=== PATIENT | female | born 1940 | race Caucasian/White ===

== ENCOUNTER 2022-12-01 12:34 | Emergency (ER) | payer MEDICARE, OTHER, SELFPAY ==
[2022-12-01 12:35] VITALS: BP 139/84; PULSE 67; RESP 15; TEMP 36.2; O2SAT 98; BMI 26.9
--- NOTE | 2022-12-01 13:18 | EKG12_ITS ---
Test Reason : /GENERAL Blood Pressure : / mmHG Vent. Rate : 128 BPM Atrial Rate : 000 BPM P-R Int : 000 ms QRS Dur : 068 ms QT Int : 314 ms P-R-T Axes : 000 079 -43 degrees QTc Int : 458 ms Atrial fibrillation with rapid ventricular response Nonspecific ST and T wave abnormality Abnormal ECG Confirmed by VIKKI GENAO, GOLD ([id number]), story editor AVNI GONSALVES ([id number]) on 12/06/2022 12:44:48 P M Referred By: Confirmed By:АНДРЕЙ FLOREZ MD
--- NOTE | 2022-12-01 13:19 | EX.ED.DYSGE1 ---
HPI History of Present Illness Chief Complaint: Other, Pain/Inj Detail of Chief Complaint: EKG changes Informant: patient Narrative Narrative: Patient presents to the ER from her PCPs office secondary to EKG changes noted in the office today. She states she went in for routine follow-up and has no complaints. She was told that her EKG was abnormal and she needed to come to the emergency room. She denies any chest pain or shortness of breath. It appears that she has a new onset atrial fibrillation with A-fib RVR on the monitor. [facility] Medical History (Updated 12/01/22 @ 15:[address] Ileana Jiang MD) Hypertension Home Medications glucosamine HCl 500 mg-msm 83 mg-chondroitin 400 mg tablet 1 ea PO DAILY 11/03/16 [History Last Taken Unknown] lisinopril 10 mg tablet (Prinivil) 10 mg PO DAILY 11/03/16 [History Last Taken 11/10/16 05:30] pfynczdb-fwbg-qicu 8 mg-folic 400 mcg-K 50 mcg-lutein 300 mcg tablet (Centrum Silver Women) 1 ea PO DAILY 11/03/16 [History Last Taken Unknown] tolterodine 2 mg tablet (Detrol) 2 mg PO PRN PRN Bladder 11/03/16 [History Last Taken Unknown] hydrocodone-acetaminophen 5-325mg 5mg-325mg 1 tab PO Q6H PRN PRN Pain ##6 11/10/16 [Rx Last Taken Unknown] apixaban 5 mg (74 tabs) tablets in a dose pack (Eliquis DVT-PE Treat 30D Start) 5 mg PO BID #74 tabs 12/01/22 [Rx Last Taken Unknown] diltiazem HCl 180 mg capsule,extended release 24 hr (Cardizem CD) 180 mg PO DAILY #30 caps 12/01/22 [Rx Last Taken Unknown] Allergy/AdvReac Type Severity Reaction Status Date / Time allopurinol Allergy Other Verified 12/01/22 13:02 tramadol Allergy Other Verified 12/01/22 13:02 adhesive tape AdvReac Rash Verified 12/01/22 13:02 Social History Smoking Status: Never smoker ROS ROS ED Constitutional Constitutional ED: Denies chills or fever(s) Eyes Eyes: Denies change in vision or discharge from eye(s) ENT ENT ED: Denies discharge from eye(s), rhinorrhea or sore throat Cardiovascular Cardiovascular: Denies chest pain or palpitations Respiratory/Chest Respiratory/Chest: Denies cough or dyspnea Gastrointestinal Gastrointestinal: Denies abdominal pain, diarrhea, nausea or vomiting Genitourinary Genitourinary ED: Denies difficulty urinating or dysuria Musculoskeletal Musculoskeletal: Denies back pain or extremity pain Integumentary Denies Abrasions or rash Neurologic Neurologic: Denies headache(s) or weakness Psychiatric Psychiatric: Denies anxiety or depression Allergic/Immunologic Allergic/Immunologic ED: Denies lip swelling or urticaria EXAM Physical Exam Const Vital Signs: 12/01/22 12:35 12/01/22 14:12 Temperature 97.2 F L Temperature Source Temporal Pulse Rate 67 110 H Respiratory Rate 15 20 H Blood Pressure 139/84 H 152/107 H Blood Pressure Mean 102 122 Pulse Ox 98 98 Oxygen Delivery Method Room Air Room Air Positive well nourished and well developed General Appearance ED: well developed HEENT Reports normocephalic and head/scalp atraumatic Eyes PERRL and EOMs intact bilaterally Neck supple Chest Wall inspection of chest normal and palpation of chest normal Resp normal respiratory effort and clear to auscultation bilaterally Cardio Rate: tachycardic Rhythm: abnormal rhythm irregularly irregular GI normal to inspection, nondistended, normoactive bowel sounds Palpation: soft Extremity normal to inspection Neuro oriented x3 and no sensory deficits noted Sensorium / Orientation: alert Motor Exam: strength 5/5 throughout Psych mental status grossly normal Skin no rashes or lesions noted MDM MDM MDM Narrative Medical decision making narrative: Patient placed on phototypesetting equipment monitor. EKG obtained to evaluate for cardiac arrhythmia/ischemia. Chest x-ray obtained to evaluate for acute lung pathology, cardiac size, or mediastinal abnormality. Labwork obtained to evaluate for leukocytosis, anemia, and electrolyte derangement. Patient is in A-fib RVR at the time of my exam. She is given 10 mg of IV Cardizem. Lab Data Attestation: I reviewed the patient's lab results. Labs: Laboratory Results - last 24 hr 12/01/22 13:20 WBC 8.7 RBC 4.59 Hgb 14.9 Hct 47.5 H MCV 103.5 H MCH 32.5 H MCHC 31.4 L RDW Std Deviation 47.0 H RDW Coeff of Shelia 12.3 Plt Count 204 MPV 11.7 Immature Gran % (Auto) 0.200 Neut % (Auto) 71.6 H Lymph % (Auto) 17.1 L [place] % (Auto) 9.0 Eos % (Auto) 1.3 Baso % (Auto) 0.8 Absolute Neuts (auto) 6.2 Absolute Lymphs (auto) 1.48 Nucleated RBC % 0 Sodium 136 Potassium 4.6 Chloride 104 Carbon Dioxide 24.0 Anion Gap 8 BUN 24 H Creatinine 1.04 H Estim Creat Clear Calc 34.77 Est GFR (MDRD) Af Amer 65 Est GFR (MDRD) Non-Af 54 L BUN/Creatinine Ratio 23.1 H Glucose 167 H Calcium 9.6 Troponin I High Sens 14 TSH 2.70 Radiography Chest X-Ray - ED: 1 View, Read by ED Physician and Cardiomegaly Diagnostic Testing: Clinical Impression(s) from Imaging Studies Chest X-Ray 12/01/22 13:45 IMPRESSION: Mild cardiac enlargement. The lungs are clear. Electronically Signed: Hoang Reyna MD at 14:05 EDT , EKG Initial EKG: Attestation: I personally reviewed and interpreted this EKG as follows: Interpretation: Atrial Fibrillation (Atrial fibrillation with ventricular response rate of [address] change.) Treatment and Re-Evaluation :: EKG reveals A-fib RVR with a ventricular response rate 128 bpm. Previous EKG from 2012 reveals sinus rhythm. CBC and chemistry studies are largely unremarkable. Potassium is normal at 4.6. Troponin is normal at 14 and TSH is normal at 2.7. Portable chest x-ray per my interpretation reveals cardiomegaly. Radiology interpretation is reviewed and agrees. After 10 mg of IV Cardizem patient's heart rate is now in the mid to high 90s. I spoke Dr. Arevalo, on-call for cardiology. At this time the patient's rate is controlled and she wishes to go home. We will stop her lisinopril. She will be started on Cardizem 180 mg CD and Eliquis. She will follow-up in the cardiology office. Return instructions have been given. Discharge Plan Triage Chief Complaint: Other, Pain/Inj ED Provider: Ileana Jiang Dx/Rx/DC Orders Clinical Impression: Atrial fibrillation, new onset, Atrial fibrillation with RVR Instructions: ED AFIB Prescriptions: New diltiazem HCl [Cardizem CD] 180 mg capsule,extended release 24hr 180 mg PO DAILY Qty: 30 0RF Eliquis DVT-PE Treat 30D Start 5 mg (74 tabs) tablets,dose pack 5 mg PO BID Qty: 74 0RF No Action tolterodine [Detrol] 2 MG tablet 2 mg PO PRN PRN (Reason: Bladder) lisinopril [Prinivil] 10 MG tablet 10 mg PO DAILY nywuynzv-dwr-lzyh-FA-vit K-lut [Centrum Silver Women] 1 EACH tablet 1 ea PO DAILY glucosamine VTh-wrs-wqwbgmhcyn 1 EACH tablet 1 ea PO DAILY hydrocodone-acetaminophen 1 TABLET tablet 1 tab PO Q6H PRN PRN (Reason: Pain) Qty: 6 0RF Primary Care Provider: Blake Jefferson Referrals: Blake Jefferson MD [Primary Care Provider] - Angela Arevalo MD [Med Staff - Active Staff] - 1-2 Weeks Disposition Disposition: Home, Self Care
[2022-12-01 13:36] LABS: Absolute Lymphocyte Count 1.48 X10^3/uL (0.83-4.51); Absolute Neutrophil Count 6.2 X10^3/uL (2.0-7.7); Basophil# 0.07 X10^3/uL; Basophil% 0.8 % (0-1); Eosinophil# 0.11 X10^3/uL; Eosinophils% 1.3 % (0-5); Hematocrit 47.5 % (37-47); Hemoglobin 14.9 g/dL (12.0-15.0); Lymphocyte # 1.48 X10^3/ul (0.83-4.51); Lymphocyte % 17.1 % (19-41); Mean Corp Hgb Conc 31.4 g/dL (32-36); Mean Corpuscular Hgb 32.5 pg (27.0-32.0); Mean Corpuscular Volume 103.5 fL (81-99); Mean Platelet Vol. 11.7 fl (6.2-12.0); Monocyte# 0.78 X10^3/uL; NRBC Flagged by Analyzer 0 % (0-5); Neutrophil # 6.21 X10^3/uL (2.7-7.7); Neutrophil % 71.6 % (47-70); Platelet Count 204 K/mm3 (150-450); RBC Distribution Width CV 12.3 % (11.6-14.6); Red Blood Count 4.59 M/mm3 (4.2-5.4); White Blood Count 8.7 K/mm3 (4.4-11.0)
[2022-12-01] MEDS: dilTIAZem 25 MG/5 ML Vial 10 MG IV BOLUS (13:40)
[2022-12-01] MEDS: 0.9% Normal Saline 1,000 ML 150 ML IV (13:40)
--- NOTE | 2022-12-01 13:45 | RAD_ITS ---
STUDY: X-RAY CHEST REASON FOR EXAM: Female, 82 years old. cp TECHNIQUE: Single AP portable view of the chest. COMPARISON: None. FINDINGS: EKG electrodes are seen. The lungs are clear and expanded. There is no demonstrated pleural abnormality. There is mild cardiac enlargement. Normal mediastinum and susie. Normal visualized pulmonary arteries. There is atherosclerotic tortuosity of the aortic arch and descending thoracic aorta. There are diffuse degenerative changes of the visualized thoracic spine. Mild calcific tendinitis of the left shoulder. There is no demonstrated abnormality of the visualized soft tissue structures of the upper abdomen. RAD/Chest 1 View (Portable) IMPRESSION: Mild cardiac enlargement. The lungs are clear. Electronically Signed: Hoang Reyna MD at 14:05 EDT ,
[2022-12-01 14:02] LABS: Anion Gap 8 (5-15); BUN 24 mg/dL (7-18); BUN/Creat Ratio 23.1 RATIO (10-20); Calcium,Total 9.6 mg/dL (8.5-10.1); Chloride 104 mmol/L (98-107); Creatinine, Serum 1.04 mg/dL (0.55-1.02); EST Glomerular Filtration Rate 54 mL/min (>60); Est Glom Filt Rate - Afr Amer 65 mL/min (>60); Estimated Creatinine Clearance 34.77 ml/min; Glucose 167 mg/dL (74-106); Potassium 4.6 mmol/L (3.5-5.1); Sodium Level 136 mmol/L (136-145); Troponin-I HS 14 pg/mL (3.0-54.0)
[2022-12-01 14:12] VITALS: BP 152/107; PULSE 110; RESP 20; O2SAT 98
== END 2022-12-01 15:26 | disposition home or self-care (01) ==
PROVIDERS: Emergency Provider Emergency Medicine; PCP Family Medicine; Visit Provider Emergency Medicine
DX: I48.91 Unspecified atrial fibrillation (principal); I10 Essential (primary) hypertension; Z79.899 Other long term (current) drug therapy
CPT/HCPCS: 71045; 80048; 84443; 84484; 85025; 93005; 96361; 96374; 99284; J7030; A4216

== ENCOUNTER → 2022-12-31 | Outpatient (CLI) | payer MEDICARE, OTHER, SELFPAY ==
--- NOTE | 2022-12-31 12:57 | ECHOD_ITS ---
Version 2 Reason For Study: AFIB/FLUTTER Procedure This was a 2D Doppler, Color Flow transthoracic echocardiogram. The study was technically difficult. PT had difficulty with vertigo. Exam performed in department. Left Ventricle Normal LV size. Left ventricular systolic function is lower limits of normal. No regional wall motion abnormalities noted. Right Ventricle Normal RV size. Normal systolic function. Atria Normal left atrium. Normal right atrium. Mitral Valve Normal mitral valve. Mild (1+) eccentric mitral valve insufficiency. Tricuspid Valve Normal tricuspid valve. Mild (1+) tricuspid valve insufficiency. Pulmonary artery systolic pressure is 40 mmHg. Aortic Valve Trisinus/trileaflet aortic valve. Pulmonic Valve Normal pulmonic valve. Great Vessels Normal aortic root. The pulmonary artery is normal size. Normal inferior vena cava. Pericardium/Pleural No pericardial effusion. MMode/2D Measurements & Calculations LVIDd: 4.3 cm IVSd: 0.77 cm Ao root diam: 3.1 cm LVIDs: 3.5 cm LVPWd: 0.89 cm RVDd: 2.4 cm FS: 17.8 % LAV(MOD-bp): 50.5 ml LA A4 area: 17.6 cm2 LA dimension(2D): 3.6 cm LAV(MOD-bp) Indexed: 28.5 ml/m2 LAV(MOD-sp2): 48.8 ml LAV(MOD-sp4): 48.8 ml RA A4 area: 19.9 cm2 Doppler Measurements & Calculations MV E max brent: 120.2 cm/sec Lat Peak E' Brent: 13.7 cm/sec Med Peak E' Brent: 9.5 cm/sec E/E' lat: 8.8 E/E' med: 12.6 Ao V2 max: 128.8 cm/sec LV V1 max: 72.0 cm/sec MR max brent: 542.8 cm/sec Ao max P.6 mmHg LV V1 max P.1 mmHg MR max P.8 mmHg Ao V2 mean: 89.9 cm/sec LV V1 mean P.2 mmHg Ao mean P.6 mmHg LV V1 mean: 50.6 cm/sec Ao V2 VTI: 20.7 cm LV V1 VTI: 13.9 cm AV (velocity ratio): 0.67 PA V2 max: 121.1 cm/sec TR max brent: 298.3 cm/sec PA V2 mean: 72.0 cm/sec PI dec slope: 238.7 cm/sec2 TR max P.6 mmHg ECHO/Echo Complete Interpretation Summary Normal LV size. Left ventricular systolic function is lower limits of normal. Pulmonary artery systolic pressure is 40 mmHg. Structurally normal valves. Ordering Physician: Isaac Moss Referring Physician: Dali Rivas Performed By: Marizol Harmon, RDCS, RVT
== END | disposition home or self-care (01) ==
LOC: CVS 12:56
PROVIDERS: PCP Nurse Practitioner Family; Referring Provider Internal Medicine Cardiovascular Disease; Visit Provider Internal Medicine Cardiovascular Disease
DX: I48.0 Paroxysmal atrial fibrillation (principal)
CPT/HCPCS: 93306

== ENCOUNTER 2024-12-19 18:08 | Emergency (ER) | payer MEDICARE, OTHER, SELFPAY ==
[2024-12-19 18:09] VITALS: BP 184/84; PULSE 77; RESP 16; TEMP 37.2; O2SAT 98; BMI 25.1
[2024-12-19 19:50] VITALS: BP 189/84; PULSE 87; RESP 20; O2SAT 99
--- NOTE | 2024-12-19 19:57 | EX.ED.DYSGE1 ---
HPI History of Present Illness Chief Complaint: Hypertension [facility] Medical History Longstanding persistent atrial fibrillation Paroxysmal atrial fibrillation Essential hypertension Hyperlipidemia Type 2 diabetes mellitus without complication Diffuse cystic mastopathy of breast Osteoarthritis Atrial fibrillation with RVR Home Medications Medication Instructions Recorded Last Taken Type acetaminophen 500 mg tablet 500 mg PO Q6H PRN 12/09/22 Unknown History tolterodine 2 mg tablet (Detrol) 2 mg PO DAILY PRN Bladder 12/09/22 Unknown History glucosamine HCl 500 mg-msm 83 1 tab PO DAILY 12/15/22 Unknown History mg-chondroitin 400 mg tablet gcvnukfy-ovkk-nfdo 8 mg-folic 400 1 tab PO DAILY 12/15/22 Unknown History mcg-K 50 mcg-lutein 300 mcg tablet (Centrum Silver Women) apixaban 5 mg tablet (Eliquis) 5 mg PO BID #60 tabs 01/05/24 Unknown Rx diltiazem HCl 180 mg 180 mg PO DAILY #90 caps 02/27/24 Unknown Rx capsule,extended release 24 hr (Cardizem CD) Allergy/AdvReac Type Severity Reaction Status Date / Time allopurinol Allergy Other Verified 12/19/24 18:10 tramadol Allergy Other Verified 12/19/24 18:10 adhesive tape AdvReac Rash Verified 12/19/24 18:10 Family History Sister Diabetes Breast cancer Heart disease Surgical History History of breast biopsy History of bilateral carpal tunnel release Social History Smoking Status: Never smoker alcohol intake: current alcohol intake frequency: holidays/special occasions only substance use type: does not use caffeine: Yes Type: coffee Number of servings: 1 EXAM Physical Exam Const Vital Signs: 12/19/24 18:09 12/19/24 19:50 12/19/24 19:50 Temperature 98.9 F Temperature Source Oral Pulse Rate 77 87 Respiratory Rate 16 20 H Respiratory Pattern Normal Blood Pressure 184/84 H 189/84 H Blood Pressure Mean 117 119 Pulse Ox 98 99 Oxygen Delivery Method Room Air Room Air 12/19/24 20:00 12/19/24 20:37 Temperature Temperature Source Pulse Rate 95 75 Respiratory Rate 18 20 H Respiratory Pattern Blood Pressure 190/85 H 186/86 H Blood Pressure Mean 120 119 Pulse Ox 98 97 Oxygen Delivery Method Room Air Room Air [facility] Narrative Medical decision making narrative: HISTORY OF PRESENT ILLNESS: Chief complaint: Elevated blood pressure 84-year-old female history of A-fib, hypertension hyperlipidemia on Eliquis, diltiazem at home presents with elevated blood pressure. States she was at her PCPs office prior to arrival they noted she had elevated blood pressure and was complaining of dizziness presented to the emergency department. The patient further states she has been compliant with all of her medications including diltiazem. Denies headache, chest pain, abdominal pain. No recent vomiting or diarrhea noted. REVIEW OF SYSTEMS: Pertinent positives: Elevated blood pressure, dizziness Pertinent negatives: As per HPI PHYSICAL EXAM: Nursing triage notes reviewed, Vital signs reviewed Constitutional: please see [facility] HENT: MMM Eyes: Pupils equal round and reactive to light, Extraocular muscles intact Neck: No stridor, no JVD, full neck ROM Lungs: Clear to auscultation, No wheezing or rales. No increased work of breathing, no conversational dyspnea, no accessory muscle use, no nasal flaring. No respiratory distress noted Heart: Regular rate and rhythm, No murmurs, No rubs and No gallops, 2+ distal pulses (radial, femoral, posterior tibial) in all extremities Abdomen: Soft, there is no tenderness, rigidity, rebound or guarding, no obvious peritoneal signs, no palpable pulsatile abdominal masses, no auscultated abdominal bruit : No CVAT Extremities: No edema Neuro: No new focal neurological deficits, cranial nerves II through XII intact, 5/5 strength in all present extremities. Intact sensation to light touch in all present extremities, 2+ reflexes bilateral patella tendons. Skin: No rash or lesions noted MEDICAL DECISION MAKING: Chief Complaint: please see HPI External records reviewed: Reviewed echocardiogram 2022 which showed normal LV function Factors affecting care: As per HPI Social determinants of health: patient History obtained from others: none Consults: none [facility] Narrative: Patient was initially hemodynamically stable, afebrile and nontoxic-appearing. Exam without focal cardiopulmonary normalities. I considered the following differential diagnosis: ICH, mass, posterior circulation CVA, endorgan damage from elevated blood pressure. I obtained a broad lab and imaging workup to further elucidate etiology of patient's complaints. Initially wrote for labetalol and the patient's blood pressure went to 214/122 however before labetalol was given patient's blood pressure spontaneously resolved per nurse report to 156/78. Labetalol i was not given ALL IMAGES (IF OBTAINED) HAVE BEEN PERSONALLY REVIEWED AND INTERPRETED BY MYSELF. CT scan of the brain shows no acute abnormalities I have personally reviewed the patient's chest x-ray. Chest x-ray is unremarkable for pulmonary edema, pneumothorax, pneumonia or focal cardiopulmonary abnormality. CBC without leukocytosis, severe anemia, no thrombocytopenia. CMP without evidence of acute kidney injury, significant electrolyte abnormality, anion gap to suggest end organ hypo-perfusion, no evidence of metabolic acidosis with a normal bicarbonate, no evidence of hepatobiliary obstructive pathology. High-sensitivity troponin is negative, no evidence of myocardial ischemia The synthesis of the patient's history, physical exam, labs image suggest elevated blood pressure. Will start the patient on Norvasc and have her follow with cardiology/PCP for further outpatient blood pressure titration The patient and/or family, caregivers express understanding. The patient and/or family, caregivers agrees with the plan. Shared decision making: I will have a discussion with the patient and or visitors regarding risk/benefits of further testing or admission. They will be made aware of of the risk/benefits inherent in this decision they will be given the opportunity to voice understanding. Total critical care time today provided was at least 0 minutes. This excludes separately billable procedures. Critical care time (if documented) is secondary to the patient having high probability of clinically significant/life threatening deterioration in the patient's condition which required my urgent intervention. Impression: 1. Asymptomatic hypertension 2. History of hypertension Dispo: Discharge home This note was generated with [employer] dictation software. It may contain incorrect words, spelling, and punctuation that were not noted in review of the chart prior to signing. Lab Data Labs: Laboratory Results - last 24 hr 12/19/24 20:29 WBC 8.4 RBC 4.67 Hgb 15.1 H Hct 44.6 MCV 95.5 MCH 32.3 H MCHC 33.9 RDW Std Deviation 42.4 RDW Coeff of Shelia 12.1 Plt Count 251 MPV 10.4 Immature Gran % (Auto) 0.200 Neut % (Auto) 65.3 Lymph % (Auto) 23.5 [place] % (Auto) 9.4 Eos % (Auto) 1.0 Baso % (Auto) 0.6 Absolute Neuts (auto) 5.5 Absolute Lymphs (auto) 1.97 Nucleated RBC % 0 Sodium 140 Potassium 4.1 Chloride 101 Carbon Dioxide 24.2 Anion Gap 15 BUN 16 Creatinine 0.94 Estim Creat Clear Calc 38.80 L Est GFR (MDRD) Non-Af 59 L BUN/Creatinine Ratio 17.0 Glucose 132 H Calcium 9.8 Total Bilirubin 0.42 AST 21 ALT 17 Alkaline Phosphatase 89 Troponin T High Sens 17 H Total Protein 7.7 Albumin 4.6 Globulin 3.1 Albumin/Globulin Ratio 1.5 Radiography Diagnostic Testing: Clinical Impression(s) from Imaging Studies Brain CT 12/19/24 20:38 IMPRESSION: No acute intracranial findings Reading Location: [place] [address] Chest X-Ray 12/19/24 20:38 IMPRESSION: No acute chest findings. Reading Location: [place] [address] Discharge Plan Triage Chief Complaint: Hypertension ED Provider: Felipe Cooley Dx/Rx/DC Orders Prescriptions: No Action acetaminophen 500 mg tablet 500 mg PO Q6H PRN tolterodine [Detrol] 2 mg tablet 2 mg PO DAILY PRN (Reason: Bladder) glucosamine RTw-dlk-yszmezftnn 500-83-400 mg tablet 1 tab PO DAILY Centrum Silver Women 8 mg iron-400 mcg-50 mcg tablet 1 tab PO DAILY Eliquis 5 mg tablet 5 mg PO BID Qty: 60 11RF diltiazem HCl [Cardizem CD] 180 mg capsule,extended release 24hr 180 mg PO DAILY Qty: 90 3RF Primary Care Provider: Care Physician,No Primary Referrals: Dali Rivas, B[employer] TRIMMER-C [Non-Staff] - Print Language: Cameroonian
[2024-12-19 20:00] VITALS: BP 190/85; PULSE 95; RESP 18; O2SAT 98
--- NOTE | 2024-12-19 20:13 | EKG12_ITS ---
Test Reason : HYPERTENSION Blood Pressure : */* mmHG Vent. Rate : 92 BPM Atrial Rate : * BPM P-R Int : * ms QRS Dur : 68 ms QT Int : 360 ms P-R-T Axes : * 73 -5 degrees QTcB Int : 445 ms Atrial fibrillation with premature ventricular or aberrantly conducted complexes Septal infarct , age undetermined ST & T wave abnormality, consider inferior ischemia ST & T wave abnormality, consider anterior ischemia Abnormal ECG Confirmed by VIKKI GENAO, GOLD ([id number]), television news video editor TEO REECE ([id number]) on 12/21/2024 1:10:41 PM Referred By: Confirmed By: GOLD FLOREZ MD
--- OUTSIDE RECORDS SUMMARY | 2024-12-19 20:30 | XMS RPT_ITS | CCD ---
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 Oblique XR WRIST GENERAL 3V PA/LAT/OBL RIGHT Radiology Routine Closed fracture of right wrist, initial encounter 1 Occurrences starting 05/11/2024 until 06/10/2025 [facility] Work Phone: Comment on above: 1 Occurrences starti ng 05/11/2024 until 06/10/2025 XR Wrist - right PA and Lateral and Oblique XR WRIST GENERAL 3V PA/LAT/OBL RIGHT Radiology Routine Closed fracture of right wrist, initial encounter 05/14/2024 12:50 PM EST [facility] Work Phone: End: 06-16-2025 XR Wrist - right PA and Lateral and Oblique XR WRIST GENERAL 3V PA/LAT/OBL RIGHT Radiology Routine Closed fracture of distal ends of right radius and ulna with routine healing, subsequent encounter 1 Occurrences starting 05/17/2024 until 06/16/2025 [facility] Work Phone: Comment on above: 1 Occurrences starti ng 05/17/2024 until 06/16/2025 XR Wrist - right PA and Lateral and Oblique XR WRIST GENERAL 3V PA/LAT/OBL RIGHT Radiology Routine Closed fracture of distal ends of right radius and ulna with routine healing, subsequent encounter 05/28/2024 1:38 PM EST [facility] Work Phone: End: 07-19-2025 XR Wrist - right PA and Lateral and Oblique XR WRIST GENERAL 3V PA/LAT/OBL RIGHT Radiology Routine Closed fracture of distal ends of right radius and ulna with routine healing, subsequent encounter 1 Occurrences starting 06/19/2024 until 07/19/2025 [facility] Work Phone: Comment on above: 1 Occurrences starti ng 06/19/2024 until 07/19/2025 XR Wrist - right PA and Lateral and Oblique XR WRIST GENERAL 3V PA/LAT/OBL RIGHT Radiology Routine Closed fracture of distal ends of right radius and ulna with routine healing, subsequent encounter 06/25/2024 3:40 PM [facility] Work Phone: [facility] Immunizations Immunization Date Immunization Notes Care Provider Lan manzo 06-01-2023 influenza (HD-IIV4) vaccine, age 65+ yr, high dose, quadrivalent, PF (FLUZONE HIGH-DOSE) Dali Rivas APRN.CNP Work Phone: [facility] 06-01-2023 influenza virus vacc ine, unspecified formulation Dali Rivas APRN.BETTING CLERK Work Phone: [facility] 05-25-2022 influenza, high-dose , quadrivalent vaccine (FLUZONE HIGH DOSE QUADRIVALENT) Irma Jefferson MD Work Phone: [facility] 05-25-2022 influenza virus vacc ine, unspecified formulation Irma Jefferson MD Work Phone: [facility] 05-13-2021 influenza, high-dose , quadrivalent vaccine (FLUZONE HIGH DOSE QUADRIVALENT) Irma Jefferson MD Work Phone: [facility] 09-25-2020 COVID-19 vaccine, ag e 12+ yr ([employer] - PURPLE [facility]) Irma Jefferson MD Work Phone: [facility] Work Phone: 09-04-2020 COVID-19 vaccine, ag e 12+ yr (PFIZER-BIONTECH - PURPLE TOP) Irma Jefferson MD Work Phone: [facility] 06-19-2020 influenza, high-dose , quadrivalent vaccine (FLUZONE HIGH DOSE QUADRIVALENT) Irma Jefferson MD Work Phone: [facility] 06-18-2019 influenza, high dose seasonal, preservative-free Irma Jefferson MD Work Phone: [facility] 06-21-2018 influenza, high dose seasonal, preservative-free Irma Jefferson MD Work Phone: [facility] 06-20-2017 influenza, high dose seasonal, preservative-free Irma Jefferson MD Work Phone: [facility] 06-07-2016 influenza, high dose seasonal, preservative-free Irma Jefferson MD Work Phone: [facility] 06-07-2016 pneumococcal conjuga te vaccine, 13 valent Irma Jefferson MD Work Phone: [facility] 06-04-2015 influenza, high dose seasonal, preservative-free Irma Jefferson MD Work Phone: [facility] 05-09-2014 influenza, high dose seasonal, preservative-free Irma Jefferson MD Work Phone: [facility] 04-12-2013 influenza virus vacc ine, unspecified formulation Irma Jefferson MD Work Phone: [facility] 05-09-2012 influenza virus vacc ine, unspecified formulation Irma Jefferson MD Work Phone: [facility] 05-18-2011 influenza virus vacc ine, unspecified formulation Irma Jefferson MD Work Phone: [facility] 03-05-2010 influenza virus vacc ine, unspecified formulation Irma Jefferson MD Work Phone: [facility] Work Phone: 02-19-2009 influenza virus vacc ine, unspecified formulation Irma Jefferson MD Work Phone: [facility] Work Phone: 09-05-2008 pneumococcal polysaccharide vaccine, 23 valent Irma Jefferson MD Work Phone: [facility] Work Phone: 03-07-2008 influenza virus vacc ine, unspecified formulation Irma Jefferson MD Work Phone: [facility] 04-11-2007 influenza virus vacc ine, unspecified formulation Irma Jefferson MD Work Phone: [facility] Work Phone: 03-23-2006 influenza virus vacc ine, whole virus Irma Jefferson MD Work Phone: [facility] Work Phone: Payers Date Payer Category Payer Self-pay 2024 Unknown [id number] 2010 Private Health Insurance YESI GONZALES PPO [id number] 2010-Present [phone] [address] [place] [address] PPO [id number] 2010 Private Health Insurance [id number] 2010 Private Health Insurance [id number] 2010 Private Health Insurance [id number] 2003 Medicare MEDICARE MEDICAR E A AND B [id number] 2003-Present [phone] [address] [address] [place] [address] Medicare [id number] 2003 Medicare [id number] 2003 Medicare [id number] 1938 Unknown [id number] 1938 Unknown [id number] Unknown [id number] Social History Date Type Detail Facility Tobacco smoking stat [facility] Never smoked tobacco [facility] Start: 11-23-2021 End: 07-15-2024 Alcohol intake Current non-drinker of alcohol (finding) [facility] Start: 1940 Sex Assigned At Not on file [facility] Start: 11-13-2021 End: 11-23-2021 Exposure to SARS-CoV-2 (event) Not sure [facility] Start: 12-01-2022 Tobacco smoking stat [facility] Unknown if ever smoked [facility] Start: 1940 Sex Assigned At Female W [facility] Start: 12-01-2022 End: 06-20-2024 History of Social function [facility] Work Phone: Start: 12-01-2022 End: 06-20-2024 Tobacco use panel [facility] Work Phone: Adult Depression Screening Assessment 0 [facility] Work Phone: Medical Equipment Procedure Code Equipment Code Equipment Origin al Text Equipment Identifier Dates Screw 2mm T6 Pur ple Stainless Steel 12mm Bone Stardrive Variable Angle Self [id number] Start: 05-16-2024 Plate Lcp Stainl ess Steel 58mm Bone 6x3 Hole 2 Column Variable Angle 2.4mm - [id number] Start: 05-16-2024 Plate Full Threa d Straight Stainless Steel 1.3mm Bone 12 Hole Variable - [id number] Start: 05-16-2024 Screw 2mm T6 Pur ple Stainless Steel 14mm Bone Self Tap Tip Variable Angle - [id number] Start: 05-16-2024 Screw 2mm T6 Pur ple Stainless Steel 13mm Bone Self Tap Tip Variable Angle - [id number] Start: 05-16-2024 Screw Lcp 2.7mm T8 Stainless Steel 12mm Bone Stardrive Self Tap Modular - [id number] Start: 05-16-2024 Screw Lcp 2.4mm T8 Stainless Steel 22mm Bone Self Tap Self Retaining - [id number] Start: 05-16-2024 Screw Lcp 2.4mm T8 Stainless Steel 20mm Bone Variable Angle Lock Self Tap - [id number] Start: 05-16-2024 Screw Lcp 2.4mm T8 Stainless Steel 14mm Bone Variable Angle Lock Self Tap - [id number] Start: 05-16-2024 Screw Lcp 2.4mm T8 Stainless Steel 16mm Bone Variable Angle Lock Self Tap - [id number] Start: 05-16-2024 Screw Lcp 2.4mm T8 Stainless Steel 12mm Bone Variable Angle Lock Self Tap - [id number] Start: 05-16-2024 Screw Lcp 2mm T6 Stainless Steel 16mm Bone Self Tap Self Retaining - [id number] Start: 05-16-2024 Functional Status Date Assessment Result Facility 11-07-2014 Are you deaf, or do you have serious difficulty hearing No 11/07/2014 9:34 AM Yasmin Meza MA [facility] 11-07-2014 Are you blind, or do you have serious difficulty seeing, even when wearing glasses No 11/07/2014 9:34 AM Yasmin Meza MA [facility] 11-07-2014 Do you have serious difficulty walking or climbing stairs No 11/07/2014 9:34 AM Yasmin Meza MA [facility] 11-07-2014 Do you have difficul ty dressing or bathing No 11/07/2014 9:34 AM Yasmin Meza MA [facility] 11-07-2014 Because of a physica l, mental, or emotional condition, do you have difficulty doing errands alone such as visiting a physician's office or shopping No 11/07/2014 9:34 AM EDT Yasmin Jackson MA No [facility] Mental Status Date Assessment Result Facility 12-01-2022 Cognitive function Level Of Cons ciousness Awake;Alert;Appropriate [facility] Work Phone: 11-07-2014 Because of a physica l, mental, or emotional condition, do you have serious difficulty concentrating, remembering, or making decisions No 11/07/2014 9:34 AM EDYasmin Hugo MA No [facility] Clinical Notes 01-03-2018 to 07-26-2024 Telephone Encounter - Handy Anthony LPN - 07/26/2024 10:19 AM ESTTelephone Encounter - Handy Anthony LPN - 07/26/2024 10:19 AM Tye Johnson MD - 06/25/2024 4:11 PM EST Note Date & Type Note Facility 07-26-2024 Telephone encounter Note Patient son Héctor notified of results, verbalizes understanding of instructions. Handy Anthony LPN [facility] 07-26-2024 Miscellaneous Notes Patient son Héctor notified of results, verbalizes understanding of instructions. Handy Anthony LPN Can you please call the patient and let her know I reviewed her lab results. Triglycerides were mildly elevated. A1c went from 7.2 to 6.9. She may continue with lifestyle changes at home. Try to eat a low-carb diet, watch processed foods, increase lean protein, vegetables, get some form exercise. Repeat fasting labs in 6 months prior to next office visit. Please let me know if she has any questions. Thank you. Dali Rivas APRN.JOSHUA documented in this encounter [facility] 07-26-2024 Telephone encounter Note Can you please call the patient and let her know I reviewed her lab results. Triglycerides were mildly elevated. A1c went from 7.2 to 6.9. She may continue with lifestyle changes at home. Try to eat a low-carb diet, watch processed foods, increase lean protein, vegetables, get some form exercise. Repeat fasting labs in 6 months prior to next office visit. Please let me know if she has any questions. Thank you. Dali Rivas APRN.BETTING CLERK [facility] 06-25-2024 Note HNO ID: [id number] Author: TYE CHAUDHRY MD Service: ? Author Type: Physician Type: Progress Notes Filed: 07/15/2024 17:03 Note Text: Tye Chaudhry MD Department of Orthopaedics Orth[facility] [address] [facility] [address] Dept: [phone] Dept June 25, 2024 CHIEF COMPLAINT: Established Patient and Post Op of the Right Wrist. HPI Patient here today 5 weeks 5 days post op ORIF right distal radius fracture. She denies any pain. New x-ray today. ASSESSMENT: S52.501D, S52.601D Closed fracture of distal ends of right radius and ulna with routine healing, subsequent encounter (primary encounter diagnosis) SUMMARY/PLAN: She's doing remarkably well. Continue her ROM exercises and ADLs. Exam: Healed incisions. Good ROM. NV exam intact. Imaging: IMPRESSION: Healing distal forearm fractures with intact hardware and unchanged alignment. Licensed Clinician: [facility] Transcribe Date/Time: Jun 27 2024 7:52A Dictated by : JN SHIELDS MD This examination was interpreted and the report reviewed and electronically signed by: JN SHIELDS MD on Jun 27 2024 7:53AM EST Results-Findings * * *Final Report* * * DATE OF EXAM: Jun 25 2024 3:40PM [id number] - XR WRIST 3V PA/LAT/OBL RT / PROCEDURE REASON: multiple diagnoses * * * * Physician Interpretation * * * * EXAMINATION / TECHNIQUE: XR WRIST 3V PA/LAT/OBL RT HISTORY: PT STATES RIGHT WRIST FOLLOW UP Closed fracture of distal ends of right radius and ulna with routine healing, subsequent encounter Closed fracture of distal ends of right radius and ulna with routine healing, subsequent encounter COMPARISON: 05/28/2024. RESULT: Healing distal radius and ulna fractures with intact hardware. Bony alignment is unchanged. No new acute bony abnormality. Ms. Janay Bowen was advised as to contrast therapies and/or to take analgesics/anti-inflammatories as needed and all contraindications were reviewed. Supporting Information Below: Medications: Current Outpatient Medications Medication Sig tolterodine (DETROL) 2 mg tablet TAKE 1 TABLET BY MOUTH TWICE DAILY NEEDED ELIQUIS 5 mg tab(s) Take 5 mg by mouth two times a day. dilTIAZem CD (CARDIZEM CD, CARTIA XT) 180 mg 24 hr capsule Take 1 capsule by mouth every afternoon. Glucosamine and [id number]-JE-Sak9 [id number] mg tab Take by mouth. acetaminophen (TYLENOL) 500 mg tablet Take 1 tablet by mouth every 6 hours as needed. CENTRUM SILVER TAB Take one(1) tablet daily. ondansetron orally disintegrating (ZOFRAN ODT) 4 mg disintegrating tablet Take 1 tablet by mouth every 6 hours as needed for nausea/vomiting. No current facility-administered medications for this visit. Allergies: Allopurinol and Tramadol Tye Chaudhry MD [facility] 06-25-2024 History of Present illness Narrative Tye Chaudhry MD Department of Orthopaedics Orthopaedics [facility] [address] Dept: [phone] Dept June 25, 2024 CHIEF COMPLAINT: Established Patient and Post Op of the Right Wrist. HPI Patient here today 5 weeks 5 days post op ORIF right distal radius fracture. She denies any pain. New x-ray today. ASSESSMENT: S52.501D, S52.601D Closed fracture of distal ends of right radius and ulna with routine healing, subsequent encounter (primary encounter diagnosis) SUMMARY/PLAN: She's doing remarkably well. Continue her ROM exercises and ADLs. Exam: Healed incisions. Good ROM. NV exam intact. Imaging: IMPRESSION: Healing distal forearm fractures with intact hardware and unchanged alignment. Licensed Clinician: DAISY Transcribe Date/Time: Jun 27 2024 7:52A Dictated by : JN SHIELDS MD This examination was interpreted and the report reviewed and electronically signed by: JN SHIELDS MD on Jun 27 2024 7:53AM EST Results-Findings * * *Final Report* * * DATE OF EXAM: Jun 25 2024 3:40PM [id number] - XR WRIST 3V PA/LAT/OBL RT / PROCEDURE REASON: multiple diagnoses * * * * Physician Interpretation * * * * EXAMINATION / TECHNIQUE: XR WRIST 3V PA/LAT/OBL RT HISTORY: PT STATES RIGHT WRIST FOLLOW UP Closed fracture of distal ends of right radius and ulna with routine healing, subsequent encounter Closed fracture of distal ends of right radius and ulna with routine healing, subsequent encounter COMPARISON: 05/28/2024. RESULT: Healing distal radius and ulna fractures with intact hardware. Bony alignment is unchanged. No new acute bony abnormality. Ms. aJnay Bowen was advised as to contrast therapies and/or to take analgesics/anti-inflammatories as needed and all contraindications were reviewed. Supporting Information Below: Medications: Current Outpatient Medications Medication Sig tolterodine (DETROL) 2 mg tablet TAKE 1 TABLET BY MOUTH TWICE DAILY NEEDED ELIQUIS 5 mg tab(s) Take 5 mg by mouth two times a day. dilTIAZem CD (CARDIZEM CD, CARTIA XT) 180 mg 24 hr capsule Take 1 capsule by mouth every afternoon. Glucosamine and Powwdqzko-KM-[id number] mg tab Take by mouth. acetaminophen (TYLENOL) 500 mg tablet Take 1 tablet by mouth every 6 hours as needed. CENTRUM SILVER TAB Take one(1) tablet daily. ondansetron orally disintegrating (ZOFRAN ODT) 4 mg disintegrating tablet Take 1 tablet by mouth every 6 hours as needed for nausea/vomiting. No current facility-administered medications for this visit. Allergies: Allopurinol and Tramadol Tye Chaudhry MD documented in this encounter [facility] 06-25-2024 History of Present illness Narrative Radiology Service Progress Note PATIENT NAME: Janay Bowen DATE OF SERVICE: June 25, 2024 TIME: 9:32 PM PATIENT IDENTITY VERIFICATION COMPLETED USING TWO (2) IDENTIFIERS: Name and Date of confirmed by patient verbally. FALL SCREENING: Has the patient had 2 falls in the last year or 1 fall with injury or currently using an Ambulatory Assistive Device (Walker, Cane, Wheelchair, Crutches, etc.)? Yes, Patient High Risk for Falls What interventions were put in place to prevent falls during this visit? Increased Observations by Caregivers PATIENT GENDER DATA: Assigned female at . status: : No status: NO. PATIENT RELEVANT IMPLANT DATA REVIEWED: Not Applicable PATIENT PRESENTS WITH AN IMPLANTABLE OR ATTACHED REPRODUCTION TECHNICIAN: No RADIOLOGY DEPARTMENT: General X-ray: Exam(s) Completed: Upper Extremity X-Ray(s): Wrist, right PERIPHERAL IV DATA: Not applicable SIGNED BY: RT Javon(Nena) June 25, 2024 9:32 PM documented in this encounter [facility] 06-25-2024 Note HNO ID: [id number] Author: GRETA HERNANDEZ RT(R) Service: ? Author Type: Technologist Type: Progress Notes Filed: 06/25/2024 21:33 Note Text: Radiology Service Progress Note PATIENT NAME: Janay Bowen DATE OF SERVICE: June 25, 2024 TIME: 9:32 PM PATIENT IDENTITY VERIFICATION COMPLETED USING TWO (2) IDENTIFIERS: Name and Date of confirmed by patient verbally. FALL SCREENING: Has the patient had 2 falls in the last year or 1 fall with injury or currently using an Ambulatory Assistive Device (Walker, Cane, Wheelchair, Crutches, etc.)? Yes, Patient High Risk for Falls What interventions were put in place to prevent falls during this visit? Increased Observations by Caregivers PATIENT GENDER DATA: Assigned female at . status: : No status: NO. PATIENT RELEVANT IMPLANT DATA REVIEWED: Not Applicable PATIENT PRESENTS WITH AN IMPLANTABLE OR ATTACHED REPRODUCTION TECHNICIAN: No RADIOLOGY DEPARTMENT: General X-ray: Exam(s) Completed: Upper Extremity X-Ray(s): Wrist, right PERIPHERAL IV DATA: Not applicable SIGNED BY: RT Javon(R) June 25, 2024 9:32 PM [facility] 06-20-2024 History of Present illness Narrative Images from the original note were not included. Janay Bowen is a 83 year old female here for a Medicare wellness visit. Medicare Health Risk Assessment General Health fair Exercise: Minutes/Day 45 minutes Exercise: Days/Week 7 days a week Alcohol: Daily Use No Alcohol: Drinks/Day N/A Alcohol: 6 or more drinks N/A Feel off balance yes Concerns: Teeth/Dentures No Concerns: Sexual function No Troubled by feelings No Frequency: Eating healthy diet Yes ADLs requiring help No Safety precautions in home/vehicle Yes Smoke, vape, chews tobacco No Difficulty hearing Yes Difficulty seeing No Current Providers Specialists: I have reviewed specialist-related care of the patient in the medical record. Medical/Family history review Reviewed and updated problem list, medical/surgical/family/social history, medications, and allergies. Opioid use review Opioid Medications (last 90 days) 05/16/2024 05/23/2024 23:59 Opioid Medications hydrocodone/acetaminophen Admitted: May 16 - May 16, 2024 1 tablet q 6 H PRN ORAL -Rx End hydrocodone/acetaminophen 1 tablet, ORAL, NEEDED, 1 dose, Starting on Tue05/16/24 at 1713, Until Tue05/16/24 at 2126, Mild Pain (1-3) - Enteral, Moderate Pain (4-6) - Enteral, Recovery or Phase I (only) -Discontinued (AUTO DC AT D) oxycodone HCl/acetaminophen Admitted: May 16 - May 16, 2024 1 tablet q 8 H PRN ORAL (5-325 mg tab) -Discontinued meperidine HCl/PF 12.5 mg, INTRAVENOUS, NEEDED, Starting on Tue05/16/24 at 1713, Until Tue05/16/24 at 2126, for shivering May Repeat 12.5 mg in 10 minutes X1 for Continued Shivering Recovery or Phase I (only) -Discontinued (AUTO DC AT D) Details Outpatient prescription Hospital medication Patient-reported medication Anxiety/Depression screening Recommendation: no further intervention at this time Cognitive screening Cognitive screening reviewed and No further action needed (score 3-5). Functional Observation Was the patient's Timed Up & Go test unsteady or >= 12 seconds? No Advance Care Planning Surrogate decision maker and/or advance care plan documented Measurements BP 124/86 Pulse 88 Resp 16 Wt 62.9 kg (138 lb 10.7 oz) SpO2 99% BMI 27.08 kg/m Vision Screening: Follows with optometry/ophthalmology Assessment/Plan Medicare annual wellness visit, subsequent (Z00.00) - Counseled on healthy diet and regular exercise - Fall avoidance information provided - Personalized prevention plan provided This is a 83 year old female who presents today with: Patient presents with: Follow Up HISTORY OF PRESENT ILLNESS: Janay Bowen is a 83 year old female. Patient presents with: Follow Up Here in the office for extensive exam Closed fracture of the right wrist in the fall. Following with orthopedics. Was seen at the end of last month, sutures removed and brace was applied. Next follow-up at the end of this month. Refers she is doing well. Has been working on getting hand stronger. HTN: Was taking lisinopril 10 mg daily. Not currently checking blood pressure at home. Denies chest pain, palpitations, dizziness, or edema. BP elevated today. Medication was stopped due last hospital visit. Denies any headaches, chest pain, palpitations, or edema. Afib: Diagnosed at last visit, referred to cardiology. Went [facility], had evaluation. Will have follow up later this month. Denies chest pain.Taking Cardizem 180 mg daily and Eliquis 5 mg BID. Lipids: Working on watching diet, currently not taking any medication at this time. Type 2 diabetes: currently not checking blood sugars at home. Following with [facility]. Denies any increased thirst/urination or episodes of hypoglycemia. Both bilateral toes "feel funny" - a constant tingling. OA: Bilateral knees, taking Tylenol and Voltaran gel as needed. Urinary: Using Detrol 2 mg, at last visit discussed using 1 tab BID prn, refers this has been helpful. Refers that increased urination is worse at nighttime, staying up till about 11 PM watching TV. Does drink caffeinated beverages. Getting up 2-3 times per night. Denies any dysuria. Living alone, sons check on her. Vaccines: Due for Dtap booster at pharmacy. PAST MEDICAL HISTORY: PAST MEDICAL HISTORY Diagnosis Date Carpal tunnel syndrome BILATERAL Diffuse cystic mastopathy Essential hypertension, benign Osteoarthritis Hands, back, knees Other and unspecified hyperlipidemia PAST SURGICAL HISTORY Procedure Laterality Date BIOPSY BREAST OPEN INCISIONAL Bx of breast, incisional left BREAST BIOPSY INCISION Right 11/10/2016 Dr. Hannon CARPAL TUNNEL 2002 Left wrist NEUROPLASTY &/TRANSPOS MEDIAN NRV CARPAL TUNNE Carpal tunnel decomp right NIPPLE EXPLORATION 11/10/2016 OPEN RX DISTAL RADIUS FX, INTRA-ARTICULAR, 3+ FRAG Right 05/16/2024 ORIF right wrist PAST SURGICAL HISTORY OF Removal of lesion left shoulder ALLERGIES Allopurinol and Tramadol MEDICATIONS Current Outpatient Medications Medication Sig tolterodine (DETROL) 2 mg tablet TAKE 1 TABLET BY MOUTH TWICE DAILY NEEDED ondansetron orally disintegrating (ZOFRAN ODT) 4 mg disintegrating tablet Take 1 tablet by mouth every 6 hours as needed for nausea/vomiting. ELIQUIS 5 mg tab(s) Take 5 mg by mouth two times a day. dilTIAZem CD (CARDIZEM CD, CARTIA XT) 180 mg 24 hr capsule Take 1 capsule by mouth every afternoon. Glucosamine and Hpjjovvzw-YF-Wgr7 [id number] mg tab Take by mouth. acetaminophen (TYLENOL) 500 mg tablet Take 1 tablet by mouth every 6 hours as needed. CENTRUM SILVER TAB Take one(1) tablet daily. tizanidine HCl (TIZANIDINE ORAL) Take 4 mg by mouth as needed. lisinopril (ZESTRIL) 10 mg tablet TAKE 1 TABLET BY MOUTH EVERY DAY (Patient not taking: Reported on 05/28/2024) ascorbic acid, vitamin C, (VITAMIN C) 500 mg tablet Take 1 tablet by mouth once daily. (Patient not taking: Reported on 05/28/2024) benzonatate (TESSALON PERLES) 100 mg capsule Take 1 capsule by mouth three times daily as needed for cough. (Patient not taking: Reported on 12/07/2023) betamethasone dipropionate (DIPROSONE) 0.05 % cream Apply to affected area twice daily. (Patient not taking: Reported on 05/28/2024) No current facility-administered medications for this visit. FAMILY HISTORY Problem Relation Age of Onset Diabetes Sister Borderline diabetes Breast Cancer Sister NIECE Social History Tobacco Use Smoking status: Never Smokeless tobacco: Never Vaping Use Vaping status: Never Used Substance Use Topics Alcohol use: No Drug use: No REVIEW OF SYSTEMS GENERAL: No weight loss, malaise or fevers/chills HEENT: Negative for frequent or significant headaches, No changes in hearing or vision. NECK: Negative for lumps, goiter, pain and significant neck swelling RESPIRATORY: Negative for cough, hemoptysis, wheezing, dyspnea or shortness of breath CARDIOVASCULAR: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 2024 1:19 PM documented in this encounter [facility] 04-13-2024 Note Patient Outreach (NE TNAV) JANAY BOWEN ([id number]) 1940 F Date Time Provider Department 04/13/24 REDDY HARGROVE During your visit today, we recorded the following information about you: Reddy Hargrove MA 04/13/2024 1:28 PM Signed POPULATION HEALTH NAVIGATION OUTREACH Action/FYI Return in about 6 months (around 06/08/2024). Spoke to patient and scheduled Medicare Wellness Exam/follow up. Will get flu shot at visit- added to notes. Reason for Outreach Care Gap/HCC or Scheduling Wellness Visits Care Gaps due: Medicare Annual Wellness Visit Follow-up Appointment Flu Vaccine Patient Contacted: Spoke to patient/parent/or legal guardian Patient identified by name and : Yes Care Gap/HCC/Scheduling Wellness actions taken: Patient scheduled/pended orders: Medicare Annual Wellness Visit Flu Vaccine 06/20/2024 in [facility] with DALI RIVAS FLU SHOT Navigation Signature: Reddy Hargrove MA April 13, 2024 1:19 PM Allergies As of Date: 04/13/2024 Noted Allergy Reaction ALLOPURINOL 03/31/2005 TRAMADOL 01/07/2014 11 - Vomiting Date Reviewed: 12/07/2023 Reviewed by: Handy Anthony LPN - Fully Assessed Reason for Visit: Population Health Navigation Outreach [3910] Cmt: O QAE Surge list 2023 Prescriptions as of 04/13/2024 - ELIQUIS 5 mg tab(s) Take 5 mg by mouth two times a day. - tolterodine (DETROL) 2 mg tablet TAKE 1 TABLET BY MOUTH TWICE DAILY NEEDED - dilTIAZem CD (CARDIZEM CD, CARTIA XT) 180 mg 24 hr capsule Take 1 capsule by mouth every afternoon. - lisinopril (ZESTRIL) 10 mg tablet TAKE 1 TABLET BY MOUTH EVERY DAY - ascorbic acid, vitamin C, (VITAMIN C) 500 mg tablet Take 1 tablet by mouth once daily. - benzonatate (TESSALON PERLES) 100 mg capsule Take 1 capsule by mouth three times daily as needed for cough. - betamethasone dipropionate (DIPROSONE) 0.05 % cream Apply to affected area twice daily. - Glucosamine and [id number]-RF-Zme4 [id number] mg tab Take by mouth. - acetaminophen (TYLENOL) 500 mg tablet Take 1 tablet by mouth every 6 hours as needed. - CENTRUM SILVER TAB Take one(1) tablet daily. Meds Comments as of 10/19/2016: Problem List As Of Date 04/13/2024 Noted Resolved Mixed hyperlipidemia [E78.2] Carpal tunnel syndrome [G56.00] 12/20/2011 DIFFUS CYSTIC MASTOPATHY [N60.19] BONE AND CARTILAGE DIS NOS [M89.9, M94.9] DYSMETABOLIC SYNDROME X [E88.810] 04/02/2005 BENIGN HYPERTENSION [I10] 12/23/2005 Osteoarthritis of multiple joints [M15.9] 12/23/2005 Diabetes mellitus type 2, controlled, without c*11/07/2014 05/11/2021 Overactive bladder [N32.81] 06/07/2016 Type 2 diabetes mellitus without complication, *12/16/2016 BPPV (benign paroxysmal positional vertigo) [H8*12/22/2016 Acute pain of left knee [M25.562] 01/03/2018 05/11/2021 Encounter Status:Closed by REDDY HARGROVE on 04/13/24 [facility] 12-21-2023 Telephone encounter Note Patient notified of results, verbalizes understanding of instructions. Handy Anthony LPN [facility] 12-21-2023 Miscellaneous Notes Patient notified of results, verbalizes understanding of instructions. Handy Anthony LPN Can you please call the patient and let her know that I reviewed her lab results. Labs were relatively normal. A1c has come down from 7.7 to 7.2. I would recommend that she continue to work on lifestyle changes at home. Try to decrease processed foods, increase lean protein, vegetables, and get some form of exercise. I would like to get repeat fasting labs in 6 months prior to next office visit. Please let me know if she has any questions. Thank you. Dali Rivas APRN.JOSHUA documented in this encounter [facility] 12-21-2023 Telephone encounter Note Can you please call the patient and let her know that I reviewed her lab results. Labs were relatively normal. A1c has come down from 7.7 to 7.2. I would recommend that she continue to work on lifestyle changes at home. Try to decrease processed foods, increase lean protein, vegetables, and get some form of exercise. I would like to get repeat fasting labs in 6 months prior to next office visit. Please let me know if she has any questions. Thank you. Dali Rivas APRN.BETTING CLERK [facility] 12-07-2023 Instructions Dali Rivas APRN.JOSHUA - 12/07/2023 5:40 PM EDT Get fasting labs completed, no food 10-12 hours prior, can have black coffee and water Recommend consult with Dermatology to look at skin lesion, [facility] Keep scheduled appointments with cardiology Monitor blood pressure at home, goal is 130/80 or less, call the office with readings in 1-2 weeks. Due for Tdap booster, may get at pharmacy. Follow up in 6 months or sooner pending test results Check with insurance company to see if secondary insurance is active, pharmacy may be able to see this in their computer documented in this encounter [facility] 12-07-2023 History of Present illness Narrative This is a 83 year old female who presents today with: Patient presents with: 6 Month Exam HISTORY OF PRESENT ILLNESS: Janay Bowen is a 83 year old female. Patient presents with: 6 Month Exam 6 month follow up DUE FOR LABS HTN: Was taking lisinopril 10 mg daily. Not currently checking blood pressure at home. Denies chest pain, palpitations, dizziness, or edema. BP elevated today. Medication was stopped due last hospital visit. Denies any headaches, chest pain, palpitations, or edema. Afib: Diagnosed at last visit, referred to cardiology. Went [facility], had evaluation. Will have follow up later this month. Denies chest pain, Siv. Taking Cardizem 180 mg daily and Eliquis 5 mg BID. Refers that the Eliquis has been costing about $600 per month. Waiting on new cards to come in the mail. Will need a refill soon for eliquis, will call the office next week. Lipids: Working on watching diet, currently not taking any medication at this time. Type 2 diabetes: currently not checking blood sugars at home. Following with [facility]. Denies any increased thirst/urination or episodes of hypoglycemia.Both bilateral toes "feel funny" - a constant tingling. OA: Bilateral knees, taking Tylenol and Voltaran gel as needed. Urinary: Using Detrol 2 mg, at last visit discussed using 1 tab BID prn, refers this has been helpful. Skin lesion left upper arm, started in the past year. Lesion has gotten bigger. Is tender and itchy. in July. Has Vaccines: Due for Dtap booster at pharmacy. PAST MEDICAL HISTORY: PAST MEDICAL HISTORY Diagnosis Date Carpal tunnel syndrome BILATERAL Diffuse cystic mastopathy Essential hypertension, benign Osteoarthritis Hands, back, knees Other and unspecified hyperlipidemia PAST SURGICAL HISTORY Procedure Laterality Date BIOPSY BREAST OPEN INCISIONAL Bx of breast, incisional left BREAST BIOPSY INCISION Right 11/10/2016 Dr. Cebul CARPAL TUNNEL 2003 Left wrist NEUROPLASTY &/TRANSPOS MEDIAN NRV CARPAL TUNNE Carpal tunnel decomp right NIPPLE EXPLORATION 11/10/2016 ALLERGIES Allopurinol and Tramadol MEDICATIONS Current Outpatient Medications Medication Sig ELIQUIS 5 mg tab(s) Take 5 mg by mouth two times a day. tolterodine (DETROL) 2 mg tablet TAKE 1 TABLET BY MOUTH TWICE DAILY NEEDED dilTIAZem CD (CARDIZEM CD, CARTIA XT) 180 mg 24 hr capsule Take 1 capsule by mouth every afternoon. lisinopril (ZESTRIL) 10 mg tablet TAKE 1 TABLET BY MOUTH EVERY DAY ascorbic acid, vitamin C, (VITAMIN C) 500 mg tablet Take 1 tablet by mouth once daily. benzonatate (TESSALON PERLES) 100 mg capsule Take 1 capsule by mouth three times daily as needed for cough. betamethasone dipropionate (DIPROSONE) 0.05 % cream Apply to affected area twice daily. Glucosamine and Tpjvhisqc-PQ-Ads0 [id number] mg tab Take by mouth. acetaminophen (TYLENOL) 500 mg tablet Take 1 tablet by mouth every 6 hours as needed. CENTRUM SILVER TAB Take one(1) tablet daily. No current facility-administered medications for this visit. FAMILY HISTORY Problem Relation Age of Onset Diabetes Sister Borderline diabetes Breast Cancer Sister NIECE Social History Tobacco Use Smoking status: Never Smokeless tobacco: Never Vaping Use Vaping Use: Never used Substance Use Topics Alcohol use: No Drug use: No REVIEW OF SYSTEMS GENERAL: No weight loss, malaise or fevers/chills HEENT: Negative for frequent or significant headaches, No changes in hearing or vision. NECK: Negative for lumps, goiter, pain and significant neck swelling RESPIRATORY: Negative for cough, hemoptysis, wheezing, dyspnea or shortness of breath CARDIOVASCULAR: Negative for chest pain, leg swelling, orthopnea, or palpitations GI: No nausea, vomiting, or diarrhea/constipation. No hematochezia/melena. No heartburn or reflux symptoms. : No history of dysuria, frequency or incontinence MUSCULOSKELETAL: Negative for joint pain or swelling. SKIN: + Skin Lesion ENDOCRINE: Negative for cold or heat intolerance, polyuria, polydipsia and goiter NEURO: No history of headaches, syncope, paralysis, seizures or tremors MOOD: Negative for depression, anxiety, or suicidal ideation. EXAM: BP 142/80 Pulse 89 Resp 16 Wt 64.9 kg (143 lb) SpO2 97% BMI 27.93 kg/m PHYSICAL EXAM: General Appearance: Well appearing, alert, in no acute distress, well-hydrated, well nourished. Skin: Large, elevated, crusty skin lesion noted to left upper arm. Mild erythema surrounding lesion. No seeping. Head: Normocephalic, no masses, lesions, tenderness or abnormalities. Eyes: Anicteric sclera. Extraocular movements are intact. Lungs: Lungs clear to auscultation. No wheezing, rhonchi, rales. Heart: Positive findings: irregular rhythm. History of afib. Extremities: No deformities, edema, skin discoloration, clubbing or cyanosis. Good capillary refill. Peripheral Pulses: Normal, Capillary refill <2secs, strong peripheral pulses, Pulses palpable. Neurologic: Gait normal. Sensation grossly intact. ASSESSMENT/PLAN: 1. Skin lesion - ICD9: 709.9, ICD10: L98.9 (primary diagnosis) - Recommend consult to Dermatology for further evaluation - CONSULT TO DERMATOLOGY 2. Atrial fibrillation, unspecified type (HCC) - ICD9: 427.31, ICD10: I48.91 - Stable, continue to take all medication as prescribed. - Keep scheduled appointments with Cardiology. 3. BENIGN HYPERTENSION - ICD9: 401.1, ICD10: I10 - Worsening control - Recommend home blood pressure monitoring, to bring results to next visit - Encouraged sodium restriction, DASH or Mediterranean diet - Recommend regular aerobic exercise - Denied wanting to start back on Lisinopril, instructed to monitor blood pressure at home and message the office in 1 to 2 weeks with readings. 4. Mixed hyperlipidemia - ICD9: 272.2, ICD10: E78.2 - Control undetermined, due for labs - Counseled on healthy diet and regular exercise 5. Type 2 diabetes mellitus without complication, without long-term current use of insulin (HCC) - ICD9: 250.00, ICD10: E11.9 - Control undetermined, due for labs - Continue current medications - Counseled on healthy diet and regular exercise - ALBUMIN/CREATININE RATIO, URINE 6. Osteoarthritis of multiple joints, unspecified osteoarthritis type - ICD9: 715.89, ICD10: M15.9 - Stable 7. Overactive bladder - ICD9: 596.51, ICD10: N32.81 - Stable, continue to take medication as prescribed. Follow-up in 6 months or sooner pending test results. Discussed treatment plan and patient voices understanding. Patient's questions answered appropriately. Medications and potential side effects were discussed and patient voices understanding. Dali Rivas APRN.JOSHUA This note was partially generated using [employer] voice recognition system. Note was reviewed for accuracy. There may be minor misspellings or grammar miscues with [employer] voice recognition. documented in this encounter [facility] 12-07-2023 Note HNO ID: [id number] Author: DALI RIVAS APRN.JOSHUA Service: ? Author Type: Nurse Practitioner Type: Progress Notes Filed: 12/07/2023 18:54 Note Text: This is a 83 year old female who presents today with: Patient presents with: 6 Month Exam HISTORY OF PRESENT ILLNESS: Janay Bowen is a 83 year old female. Patient presents with: 6 Month Exam 6 month follow up DUE FOR LABS HTN: Was taking lisinopril 10 mg daily. Not currently checking blood pressure at home. Denies chest pain, palpitations, dizziness, or edema. BP elevated today. Medication was stopped due last hospital visit. Denies any headaches, chest pain, palpitations, or edema. Afib: Diagnosed at last visit, referred to cardiology. Went [facility], had evaluation. Will have follow up later this month. Denies chest pain, Siv. Taking Cardizem 180 mg daily and Eliquis 5 mg BID. Refers that the Eliquis has been costing about $600 per month. Waiting on new cards to come in the mail. Will need a refill soon for eliquis, will call the office next week. Lipids: Working on watching diet, currently not taking any medication at this time. Type 2 diabetes: currently not checking blood sugars at home. Following with [facility]. Denies any increased thirst/urination or episodes of hypoglycemia.Both bilateral toes "feel funny" - a constant tingling. OA: Bilateral knees, taking Tylenol and Voltaran gel as needed. Urinary: Using Detrol 2 mg, at last visit discussed using 1 tab BID prn, refers this has been helpful. Skin lesion left upper arm, started in the past year. Lesion has gotten bigger. Is tender and itchy. in July. Has Vaccines: Due for Dtap booster at pharmacy. PAST MEDICAL HISTORY: PAST MEDICAL HISTORY Diagnosis Date Carpal tunnel syndrome BILATERAL Diffuse cystic mastopathy Essential hypertension, benign Osteoarthritis Hands, back, knees Other and unspecified hyperlipidemia PAST SURGICAL HISTORY Procedure Laterality Date BIOPSY BREAST OPEN INCISIONAL Bx of breast, incisional left BREAST BIOPSY INCISION Right 11/10/2016 Dr. Hannon CARPAL TUNNEL 2003 Left wrist NEUROPLASTY AND/TRANSPOS MEDIAN NRV CARPAL TUNNE Carpal tunnel decomp right NIPPLE EXPLORATION 11/10/2016 ALLERGIES Allopurinol and Tramadol MEDICATIONS Current Outpatient Medications Medication Sig ELIQUIS 5 mg tab(s) Take 5 mg by mouth two times a day. tolterodine (DETROL) 2 mg tablet TAKE 1 TABLET BY MOUTH TWICE DAILY NEEDED dilTIAZem CD (CARDIZEM CD, CARTIA XT) 180 mg 24 hr capsule Take 1 capsule by mouth every afternoon. lisinopril (ZESTRIL) 10 mg tablet TAKE 1 TABLET BY MOUTH EVERY DAY ascorbic acid, vitamin C, (VITAMIN C) 500 mg tablet Take 1 tablet by mouth once daily. benzonatate (TESSALON PERLES) 100 mg capsule Take 1 capsule by mouth three times daily as needed for cough. betamethasone dipropionate (DIPROSONE) 0.05 % cream Apply to affected area twice daily. Glucosamine and Dttqzfupy-XW-Uqo7 [id number] mg tab Take by mouth. acetaminophen (TYLENOL) 500 mg tablet Take 1 tablet by mouth every 6 hours as needed. CENTRUM SILVER TAB Take one(1) tablet daily. No current facility-administered medications for this visit. FAMILY HISTORY Problem Relation Age of Onset Diabetes Sister Borderline diabetes Breast Cancer Sister NIECE Social History Tobacco Use Smoking status: Never Smokeless tobacco: Never Vaping Use Vaping Use: Never used Substance Use Topics Alcohol use: No Drug use: No REVIEW OF SYSTEMS GENERAL: No weight loss, malaise or fevers/chills HEENT: Negative for frequent or significant headaches, No changes in hearing or vision. NECK: Negative for lumps, goiter, pain and significant neck swelling RESPIRATORY: Negative for cough, hemoptysis, wheezing, dyspnea or shortness of breath CARDIOVASCULAR: Negative for chest pain, leg swelling, orthopnea, or palpitations GI: No nausea, vomiting, or diarrhea/constipation. No hematochezia/melena. No heartburn or reflux symptoms. : No history of dysuria, frequency or incontinence MUSCULOSKELETAL: Negative for joint pain or swelling. SKIN: + Skin Lesion ENDOCRINE: Negative for cold or heat intolerance, polyuria, polydipsia and goiter NEURO: No history of headaches, syncope, paralysis, seizures or tremors MOOD: Negative for depression, anxiety, or suicidal ideation. EXAM: BP 142/80 Pulse 89 Resp 16 Wt 64.9 kg (143 lb) SpO2 97% BMI 27.93 kg/m? PHYSICAL EXAM: General Appearance: Well appearing, alert, in no acute distress, well-hydrated, well nourished. Skin: Large, elevated, crusty skin lesion noted to left upper arm. Mild erythema surrounding lesion. No seeping. Head: Normocephalic, no masses, lesions, tenderness or abnormalities. Eyes: Anicteric sclera. Extraocular movements are intact. Lungs: Lungs clear to auscultation. No wheezing, rhonchi, rales. Heart: (more content not included)... [facility] 05-11-2023 Miscellaneous Notes The following approved medication requests have been transmitted electronically. Requested Prescriptions Pending Prescriptions Disp Refills tolterodine (DETROL) 2 mg tablet 90 tablet 3 Sig: TAKE 1 TABLET BY MOUTH ONE TIME DAILY NEEDED Cliff Rodriguez APRN.BETTING CLERK ISABEL-01/05/23 Labs-06/07/22 NOV-06/01/23 Handy Anthony LPN Patient has been identified by name and date of : Yes Requested Prescriptions Pending Prescriptions Disp Refills tolterodine (DETROL) 2 mg tablet 90 tablet 3 Sig: TAKE 1 TABLET BY MOUTH ONE TIME DAILY NEEDED RX INSTRUCTIONS: Patient aware RX will be sent to pharmacy. No need to notify patient. Radha Leon documented in this encounter [facility] 01-07-2023 Miscellaneous Notes Pt called in asking about getting a refill on her Eliquis. I did not find it on her medication list. Looks like Dr Moss has been managing this with the [facility]. I told the Pt to call cardiology to ask about refills. documented in this encounter [facility] 01-05-2023 Instructions Dali Rivas APRN.JOSHUA - 01/05/2023 1:25 PM EDT Images from the original note were not included. May use patch behind the ear, once every 3 days for dizziness. Preform at home exercise. Be mindful of position changes. Follow up if no improvement. Benign Paroxysmal Positional Vertigo (BPPV) What is BPPV? Benign Paroxysmal Positional Vertigo (BPPV) is an inner ear disorder in which changes to the position of the head, such as tipping the head backward, lead to sudden vertigo -- a feeling that the room is spinning. Vertigo can vary in intensity from mild to severe and usually lasts only a few minutes. It may be accompanied by other symptoms, including dizziness lightheadedness a sense of imbalance nausea vomiting Anatomy of the right inner ear. Particle repositioning therapy moves the otoconia out of the semicircular canals and into the utricle where they dissolve naturally. BPPV is not a sign of a serious problem, and it usually disappears on its own within 6 weeks of the first episode. However, the symptoms of BPPV can be very frightening and may be dangerous, especially in older individuals. The unsteadiness associated with BPPV can lead to falls. About half of all people over age 65 experience an episode of BPPV, and falls are a leading cause of fractures in this age-range. What causes BPPV? BPPV develops when calcium carbonate crystals, which are known as otoconia, shift into and become trapped within the semicircular canals (one of the vestibular organs of the inner ear that controls balance). The otoconia make up a normal part of the structure of the utricle, a vestibular organ next to the semicircular canals. (see illustration to the right.) In the utricle, the otoconia may be loosened as a result of injury, infection, or age, and they land in a sac -- the utricle -- where they are naturally dissolved. However, otoconia in the semicircular canals will not dissolve. As a person s head position changes, the otoconia begin to roll around and push on the tiny hairs that line the semicircular canals. Those hairs act as sensors to give the brain information about balance. Vertigo develops when the hairs are stimulated by the rolling otoconia. What head positions trigger BPPV? Movements that can trigger an episode of BPPV include rolling over or sitting up in bed, bending the head forward to look down, or tipping the head backward. In most people, only a single ear is affected by BPPV, although both ears may be involved on occasion. How is BPPV diagnosed and treated? With advances in medical technology, BPPV can easily be diagnosed and treated. The diagnosis can usually be made in the office based on medical history and a physical exam. Treatment also involves a short, simple in-office procedure known as the particle repositioning maneuver. (See addendum below.) How can I identify the affected side? Steps to determine affected side: Sit on bed so that if you lie down, your head hangs slightly over the end of the bed. Turn head to the right and lie back quickly. Wait 1 minute. If you feel dizzy, then the right ear is your affected ear. If no dizziness occurs, sit up. Wait 1 minute. Turn head to the left and lie back quickly. Wait 1 minute. If you feel dizzy, then the left ear is your affected ear. Right position Left position How successful is the treatment? A single particle repositioning procedure is effective in treating about 80% to 90% of cases of BPPV. Additional exercise or repositioning maneuvers may be needed if symptoms persist. Can BPPV recur? If so, what can I do? A new episode of BPPV can develop after successful treatment -- on average there is a 15 percent rate of recurrence each year. However, it may be possible to treat recurrent BPPV at home by performing a series of movements at the time an episode occurs. Patients will receive information on ways to handle recurrences on their own or they can work with a physical therapist to develop a plan. In general, if you wake up with positional vertigo, slowly move into the mjqx-wou-hmiy position and wait for a minute. Next, slowly move into a face-down position and slide to the foot of the bed. Keep your head down until you reach the end of the bed and are kneeling or standing on the floor. Slowly bring your head backward into an upright position. Hold on to the bed at all times. Another method is to sit toward the foot of the bed, leaving enough room to lay back with your head resting comfortably at the end of the bed, slightly extended. Be careful not to overextend your neck, as this may aggravate existing neck problems. If your symptoms are severe, you may need assistance to complete the maneuver. Follow the same steps as described in the boxed instructions on the next page. Without treatment, the symptoms of BPPV may worsen. However, with time, the otoconia dissolve on their own, which is usually within 6 weeks. Until the time the otoconia dissolve on their own, the number and severity of episodes may be reduced simply by paying careful attention to head position. In addition, anti-motion sickness drugs can be given to control nausea. However, before drugs are taken, it is usually best to try the particle repositioning procedure first. It is a very safe and rapid way to relieve symptoms and reduce the chance for falls. Medications should not be taken for a long period of time. ADDENDUM Particle repositioning procedure: Xyik-wj-eaen instructions The particle repositioning procedure takes about 15 minutes to complete and involves a series of physical movements that change the position of the head and body. These actions shift the otoconia out of the semicircular canals and back into their proper location in the utricle. The particle repositioning procedure begins with the patient is sitting up and then lying down on a treatment table. The procedure is very easy to perform. Patients should wear comfortable clothing that will allow them to move freely. Hold each of the following positions for 1 to 2 minutes. Step 1: Turn your head toward your affected ear. Step 2: Lay back quickly. Hold. Step 3: Keep your head back against the bed and turn it toward the good ear. Hold. Step 4: Roll onto your side with your good ear down. Your nose should be turned toward the floor. Hold. Step 5: Sit up, keeping your chin tucked in toward your shoulder. Hold. When you end, you should be sitting over the side of your bed so your feet touch the floor. Step 6: Follow your post-particle repositioning instructions. BPPV: Glossary of Terms Semicircular canals: These structures act like a gyroscope, with canals positioned in three dimensions -- upward, downward, and horizontal. Together, the canals send signals to the brain about the rotation/positioning of the head (for example, when you bend over or spin around.) Cupula: Detects the flow of fluid within the semicircular canals. The flow of fluid gives the body a sense of motion. Utricle: An organ located in the inner ear that helps control balance. The utricle contains hair cells, which are covered with otoconia. The otoconia sway with gravity, sending signals to the brain about the position of the head and body (upright, tilted, etc). Otoconia: The tiny calcium crystal particles that become dislodged from within the utricle (where they can dissolve) and move into the semicircular canals (where they can t dissolve). Cochlea: The 'snail-shell' sense organ of the inner ear that translates sound into nerve impulses and sent to the brain. References Cullen BT, Job LB. Kirill BLACK. Peripheral Vestibular Disorders. In: [facility], 3-Volume Set. [place]; 2014. Miranda Brewer. Benign Paroxysmal Positional Vertigo (BPPV): History, Pathophysiology, Office Treatment and Future Directions. International Journal of Otolaryngology. 2011;2011:665312. Sarah JS, Kailey DS. Clinical practice. Benign paroxysmal positional vertigo. N Engl J Med. 2014 Aug 16;370(12):1138-47. Erik Dubon DD, Elia Diaz. The Head and Neck. In: Erik Dubon DD, Elia Diaz. eds. Devaughn moore Diagnostic Examination, 10e. [place], [place]: [facility], [place]; 2015. Copyright 9465-0778 The [facility]. All rights reserved This information is provided by the [facility] and is not intended to replace the medical advice of your doctor or health care provider. Please consult your health care provider for advice about a specific medical condition. For additional health information, please contact the Center for Consumer Health Information at the [facility] or toll-free extension [phone]. If you prefer, you may visit [email or web address] or [email or web address]. This document was last reviewed on: 2014 documented in this encounter [facility] 01-05-2023 History of Present illness Narrative This is a 82 year old female who presents today with: Patient presents with: Acute Visit: Dizziness with positions HISTORY OF PRESENT ILLNESS: Janay Bowen is a 82 year old female. Patient presents with: Acute Visit: Dizziness with positions Dizziness that started a couple of weeks ago. Symptoms are worse when looking to side, bending over quickly/making position changes quickly. Feels off balance. No LOC. Refers she has cataracts, will need surgery in the future. In November was diagnosed with new onset A-fib, had ER evaluation, started on Eliquis and Cardizem. Seeing cardiology, [facility], Dr. Moss. Had echo, refers that she was told it was okay. Next follow up in February. PAST MEDICAL HISTORY: PAST MEDICAL HISTORY Diagnosis Date Carpal tunnel syndrome BILATERAL Diffuse cystic mastopathy Essential hypertension, benign Osteoarthritis Hands, back, knees Other and unspecified hyperlipidemia PAST SURGICAL HISTORY Procedure Laterality Date BIOPSY BREAST OPEN INCISIONAL Bx of breast, incisional left BREAST BIOPSY INCISION Right 11/10/2016 Dr. Hannon CARPAL TUNNEL 2002 Left wrist NEUROPLASTY &/TRANSPOS MEDIAN NRV CARPAL TUNNE Carpal tunnel decomp right NIPPLE EXPLORATION 11/10/2016 ALLERGIES Allopurinol and Tramadol MEDICATIONS Current Outpatient Medications Medication Sig lisinopril (ZESTRIL) 10 mg tablet TAKE 1 TABLET BY MOUTH EVERY DAY tolterodine (DETROL) 2 mg tablet TAKE 1 TABLET BY MOUTH ONE TIME DAILY NEEDED ascorbic acid, vitamin C, (VITAMIN C) 500 mg tablet Take 1 tablet by mouth once daily. benzonatate (TESSALON PERLES) 100 mg capsule Take 1 capsule by mouth three times daily as needed for cough. betamethasone dipropionate (DIPROSONE) 0.05 % cream Apply to affected area twice daily. Glucosamine and [id number]-LO-[id number] [id number] mg tab Take by mouth. acetaminophen (TYLENOL) 500 mg tablet Take 1 tablet by mouth every 6 hours as needed. CENTRUM SILVER TAB Take one(1) tablet daily. No current facility-administered medications for this visit. FAMILY HISTORY Problem Relation Age of Onset Diabetes Sister Borderline diabetes Breast Cancer Sister NIECE Social History Tobacco Use Smoking status: Never Smokeless tobacco: Never Vaping Use Vaping Use: Never used Substance Use Topics Alcohol use: No Drug use: No REVIEW OF SYSTEMS GENERAL: No weight loss, malaise or fevers/chills HEENT: Negative for frequent or significant headaches, No changes in hearing or vision. NECK: Negative for lumps, goiter, pain and significant neck swelling RESPIRATORY: Negative for cough, hemoptysis, wheezing, dyspnea or shortness of breath CARDIOVASCULAR: Negative for chest pain, leg swelling, orthopnea, or palpitations GI: No nausea, vomiting, or diarrhea/constipation. No hematochezia/melena. No heartburn or reflux symptoms. : No history of dysuria, frequency or incontinence MUSCULOSKELETAL: Negative for joint pain or swelling. SKIN: Negative for lesions, rash, and itching ENDOCRINE: Negative for cold or heat intolerance, polyuria, polydipsia and goiter NEURO: + Dizziness/Off balance MOOD: Negative for depression, anxiety, or suicidal ideation. EXAM: BP 150/74 Pulse 62 Resp 16 Wt 71.2 kg (157 lb) SpO2 96% BMI 30.66 kg/m PHYSICAL EXAM: General Appearance: Well appearing, alert, in no acute distress, well-hydrated, well nourished. Skin: Skin color, texture, turgor normal, no suspicious rashes or lesions. Head: Normocephalic, no masses, lesions, tenderness or abnormalities. Eyes: Anicteric sclera. Pupils are equally round and reactive to light. Extraocular movements are intact. Lungs: Lungs clear to auscultation. No wheezing, rhonchi, rales.. Heart: Positive findings: irregular rhythm. History of A-fib. Extremities: No deformities, edema, skin discoloration, clubbing or cyanosis. Good capillary refill. Peripheral Pulses: Normal, Capillary refill <2secs, strong peripheral pulses, Pulses palpable. Neurologic: Gait normal. Reflexes normal and symmetric. Sensation grossly intact. + Keely-Hallpike left greater than right. Orthostatic vital signs: Layin/80, sitting 120/90, standin/90 ASSESSMENT/PLAN: 1. BPPV (benign paroxysmal positional vertigo), unspecified laterality - ICD9: 386.11, ICD10: H81.10 - Symptoms consistent with BPPV. - Instructed to perform at home exercises. If no improvement may consider vestibular physical therapy in the future. - May use scopolamine patch as needed for symptoms. Instructed to be mindful of position changes. - SCOPOLAMINE 1 MG OVER 3 DAYS TRANSDERMAL PATCH Follow-up if no improvement Discussed treatment plan and patient voices understanding. Patient's questions answered appropriately. Medications and potential side effects were discussed and patient voices understanding. Dali Rivas APRN.BETTING CLERK This note was partially generated using [employer] voice recognition system. Note was reviewed for accuracy. There may be minor misspellings or grammar miscues with [employer] voice recognition. documented in this encounter [facility] 01-04-2023 Miscellaneous Notes Noted Irma Jefferson MD Patient call in for dizziness with positional changes. Patient states that she has been taking Eliquis and Diltiazem correctly. Nurse Triage assessment completed with protocol recommending for disposition of See PCP in 24 hours. Patient is scheduled with Dali tomorrow 01/05/2023. Care advice reviewed with patient, patient stated understanding. Patient advised to contact office or seek evaluation in urgent care or ER if symptoms persist or gets worse. Reason for Disposition [1] MODERATE dizziness (e.g., interferes with normal activities) AND [2] has NOT been evaluated by physician for this (Exception: dizziness caused by heat exposure, sudden standing, or poor fluid intake) Answer Assessment - Initial Assessment Questions 1. DESCRIPTION: Patient with changes in head position feels like she is not seeing straight and is dizzy. 2. LIGHTHEADED: Patient states that she feels like she does not see straight at times. 3. VERTIGO: Patient feels like room is spinning when laying down 4. SEVERITY: Mild; Patient states that she has to keep her head down to get balance when standing. If patient looks up she does become dizzy. 5. ONSET: Patient states that this has been off and for the past few weeks. 6. AGGRAVATING FACTORS: Change in head position.; Bending down will make it worse 7. CAUSE: Patient unsure what is causing dizziness. Patient has history of vertigo. Patient does vertigo exercises. Does not seem to always help. 8. RECURRENT SYMPTOM: Yes, before recent issues, was diagnosed with vertigo, had vertigo exercises. 9. OTHER SYMPTOMS: Vomited last evening. Patient has vomited at various times since 12/08 when she thought she had food poisoning. Patient currently does not have any symptoms. Patient currently is sitting down and is feeling fine. Protocols used: Dizziness - [id number] documented in this encounter [facility] 12-02-2022 Miscellaneous Notes Pt notified and voiced understanding. Yasmin Jackson Ma Can you please call the patient and let her know that I reviewed her hospital records. I also called [facility] pharmacy to get the prescription straightened out. 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 It is a starter pack she will be taking Eliquis 5 mg, 2 tablets twice daily for the first 7 days. Then take 1 tablet twice daily thereafter. She can also ask the pharmacy to run it through the [employer] [facility] to receive a discount code. Please let me know if she has any additional questions. Thank you. Dali Rivas APRN.JOSHUA Per med reconciliation pt was started on Diltiazem 24 h ER 180 mg once daily. Per d/c paperwork on Care Everywhere: apixaban 5 mg (74 tabs) tablets in a dose pack (Eliquis DVT-PE Treat 30D Start) 5 mg PO BID #74 tabs 12/01/22 [Rx Last Taken Unknown] diltiazem HCl 180 mg capsule,extended release 24 hr (Cardizem CD) 180 mg PO DAILY #30 caps 12/01/22 [Rx Last Taken Unknown] This is for: It appears that she has a new onset atrial fibrillation with A-fib RVR on the monitor. Erica Conway Ma Janay is calling about a medication problem following the [facility] ER visit yesterday. She reports that the ER released her with a change in her medication. She said the hospital had sent a script into [facility] in [place] and she believes is was for Elliquis. However the pharmacy said they needed clarification and have not received it from the ordering provider. She states they also told her not to take lisinopril. She is very frustrated and is not clear on the discharge instructions and is asking Dali to help since she had referred her to the ER. Please call Janay back at [phone] documented in this encounter [facility] 12-01-2022 Instructions Dali Rivas APRN.JOSHUA - 12/01/2022 10:42 AM EDT ECG shows A-flutter, recommend consult at the ER Get labs completed 12/06/2022 Continue to take all medications as prescribed. Try to watch processed foods and higher carb foods in the diet. Increase protein, veggies, and stay active. May consider trying magnesium 250 at bed time for leg pain. Stay well hydrated. Follow up in 6 months or sooner pending test results or if needed documented in this encounter [facility] 12-01-2022 History of Present illness Narrative This is a 82 year old female who presents today with: Patient presents with: 6 Month Exam HISTORY OF PRESENT ILLNESS: Janay Bowen is a 82 year old female. Patient presents with: 6 Month Exam Here in the office for 6 month follow up. HTN: Taking lisinopril 10 mg daily. Not currently checking blood pressure at home. Denies chest pain, palpitations, dizziness, or edema. Lipids: Working on watching diet, currently not taking any medication at this time. Type 2 diabetes: currently not checking blood sugars at home. Following with [facility]. Denies any increased thirst/urination or episodes of hypoglycemia. Both bilateral toes "feel funny" - a constant tingling OA: Bilateral knees, taking Tylenol as needed. Labs due by 12/06/2022 PAST MEDICAL HISTORY: PAST MEDICAL HISTORY Diagnosis Date Carpal tunnel syndrome BILATERAL Diffuse cystic mastopathy Essential hypertension, benign Osteoarthritis Hands, back, knees Other and unspecified hyperlipidemia PAST SURGICAL HISTORY Procedure Laterality Date BIOPSY BREAST OPEN INCISIONAL Bx of breast, incisional left BREAST BIOPSY INCISION Right 11/10/2016 Dr. Hannon CARPAL TUNNEL 2003 Left wrist NEUROPLASTY &/TRANSPOS MEDIAN NRV CARPAL TUNNE Carpal tunnel decomp right NIPPLE EXPLORATION 11/10/2016 ALLERGIES Allopurinol and Tramadol MEDICATIONS Current Outpatient Medications Medication Sig lisinopril (ZESTRIL) 10 mg tablet TAKE 1 TABLET BY MOUTH EVERY DAY tolterodine (DETROL) 2 mg tablet TAKE 1 TABLET BY MOUTH ONE TIME DAILY NEEDED ascorbic acid, vitamin C, (VITAMIN C) 500 mg tablet Take 1 tablet by mouth once daily. benzonatate (TESSALON PERLES) 100 mg capsule Take 1 capsule by mouth three times daily as needed for cough. betamethasone dipropionate (DIPROSONE) 0.05 % cream Apply to affected area twice daily. Glucosamine and Tjjscahyv-ZA-Pmj5 [id number] mg tab Take by mouth. acetaminophen (TYLENOL) 500 mg tablet Take 1 tablet by mouth every 6 hours as needed. CENTRUM SILVER TAB Take one(1) tablet daily. No current facility-administered medications for this visit. FAMILY HISTORY Problem Relation Age of Onset Diabetes Sister Borderline diabetes Breast Cancer Sister NIECE Social History Tobacco Use Smoking status: Never Smokeless tobacco: Never Vaping Use Vaping Use: Never used Substance Use Topics Alcohol use: No Drug use: No REVIEW OF SYSTEMS GENERAL: No weight loss, malaise or fevers/chills HEENT: Negative for frequent or significant headaches, No changes in hearing or vision. NECK: Negative for lumps, goiter, pain and significant neck swelling RESPIRATORY: Negative for cough, hemoptysis, wheezing, dyspnea or shortness of breath CARDIOVASCULAR: Negative for chest pain, leg swelling, orthopnea, or palpitations GI: No nausea, vomiting, or diarrhea/constipation. No hematochezia/melena. No heartburn or reflux symptoms. : No history of dysuria, frequency or incontinence MUSCULOSKELETAL: + chronic bilateral knee pain, +bilateral 1st toe tingling SKIN: Negative for lesions, rash, and itching ENDOCRINE: Negative for cold or heat intolerance, polyuria, polydipsia and goiter NEURO: No history of headaches, syncope, paralysis, seizures or tremors MOOD: Negative for depression, anxiety, or suicidal ideation. EXAM: BP 138/84 Pulse 67 Resp 16 Wt 71.2 kg (157 lb) SpO2 96% BMI 30.66 kg/m PHYSICAL EXAM: General Appearance: Well appearing, alert, in no acute distress, well-hydrated, well nourished. Skin: Skin color, texture, turgor normal, no suspicious rashes or lesions. Head: Normocephalic, no masses, lesions, tenderness or abnormalities. Eyes: Anicteric sclera. Extraocular movements are intact. Neck: Supple, no adenopathy; thyroid symmetric, normal size, no bruits. Lungs: Lungs clear to auscultation. No wheezing, rhonchi, rales. Heart: Positive findings: irregular rhythm. Extremities: No deformities, edema, skin discoloration, clubbing or cyanosis. Good capillary refill. Peripheral Pulses: Normal, Capillary refill <2secs, strong peripheral pulses, Pulses palpable. Neurologic: Gait normal. ECG: Atrial flutter ASSESSMENT/PLAN: 1. Atrial flutter, unspecified type (HCC) - ICD9: 427.32, ICD10: I48.92 (primary diagnosis) - ECG showed A flutter - After Discussion with Dr. Reyna recommend patient be evaluated in the ER for further work up. - CONSULT TO CARDIOLOGY 2. BENIGN HYPERTENSION - ICD9: 401.1, ICD10: I10 - Controlled - Continue current medications - Recommend home blood pressure monitoring, to bring results to next visit - Encouraged sodium restriction, DASH or Mediterranean diet - Recommend regular aerobic exercise 3. Type 2 diabetes mellitus without complication, without long-term current use of insulin (HCC) - ICD9: 250.00, ICD10: E11.9 - Control undetermined, due for labs - Counseled on healthy diet and regular exercise 4. Mixed hyperlipidemia - ICD9: 272.2, ICD10: E78.2 - Control undetermined, due for labs - Continue current medications - Counseled on healthy diet and regular exercise 5. Osteoarthritis of multiple joints, unspecified osteoarthritis type - ICD9: 715.89, ICD10: M15.9 - Continue with Tylenol as needed. 6. Abnormal heart sounds - ICD9: 785.3, ICD10: R01.2 - See #1. - ECG COMPLETE Follow up in 6 months or sooner pending ER evaluation. Discussed treatment plan and patient voices understanding. Patient's questions answered appropriately. Medications and potential side effects were discussed and patient voices understanding. Dali Rivas [email or web address].JOSHUA This note was partially generated using [employer] voice recognition system. Note was reviewed for accuracy. There may be minor misspellings or grammar miscues with [employer] voice recognition. documented in this encounter [facility] 06-08-2022 Miscellaneous Notes Patient calls and notified of results and providers instructions. Patient verbalizes understanding. Dayana Gabriel RN Message left for pt to call back for results. Yasmin Jackson MA Please notify patient that her lab results are all stable; stay on the same medications and follow up in 6 months as planned Irma Jefferson MD documented in this encounter [facility] 05-25-2022 History of Present illness Narrative Chief Complaint Patient presents with: 6 Month Exam Immunizations: Flu vaccination HPI Janay Bowen is a 81 year old female who presents here today for 6 month follow up. No bowel, Gi, or urinary issues. Taking Detrol 2 mg daily prn urgency. HTN: Does not check BP at home, no chest pains, dizziness, or SOB. Tries to watch her salt intake. No edema. Taking Lisinopril 10 mg daily. Lipid: Controlling with lifestyle, not on any statins. DM: Does not check BS at home, no hypoglycemic episodes. Follows with [facility]. Not taking any diabetic medications. No neuropathy sx. OA: Dami knees and thumbs; no longer using Mobic 7.5 mg daily just taking Tylenol prn. Blue Emu cream helps as well. Ill for 2 weeks with cough, fatigue, etc. Starting to get better now. and son were ill also, may have picked something up while traveling. Past medical history, appointments, medications, allergies reviewed. Previous Medical History PAST MEDICAL HISTORY Diagnosis Date Carpal tunnel syndrome BILATERAL Diffuse cystic mastopathy Essential hypertension, benign Osteoarthritis Hands, back, knees Other and unspecified hyperlipidemia Previous Surgical History PAST SURGICAL HISTORY Procedure Laterality Date BIOPSY BREAST OPEN INCISIONAL Bx of breast, incisional left BREAST BIOPSY INCISION Right 11/10/2016 Dr. Hannon CARPAL TUNNEL 2003 Left wrist NEUROPLASTY &/TRANSPOS MEDIAN NRV CARPAL TUNNE Carpal tunnel decomp right NIPPLE EXPLORATION 11/10/2016 Family History FAMILY HISTORY Problem Relation Age of Onset Diabetes Sister Borderline diabetes Breast Cancer Sister NIECE Patient Allergies ALLERGIES Allergen Reactions Allopurinol Tramadol Vomiting Current Medications Current Outpatient Medications on File Prior to Visit Medication Sig betamethasone dipropionate (DIPROSONE) 0.05 % cream Apply to affected area twice daily. meloxicam (MOBIC) 7.5 mg tablet Take 1 tablet by mouth once daily as needed, with food. lisinopril (PRINIVIL) 10 mg tablet Take 1 tablet by mouth once daily. tolterodine (DETROL) 2 mg tablet TAKE 1 TABLET BY MOUTH ONE TIME DAILY NEEDED Glucosamine and Odzbopdme-XG-Gaj0 [id number] mg tab Take by mouth. acetaminophen (TYLENOL EXTRA STRENGTH) 500 mg tablet Take 1 tablet by mouth every 6 hours as needed. CENTRUM SILVER TAB Take one(1) tablet daily. No current facility-administered medications on file prior to visit. Social History Social History Tobacco Use Smoking status: Never Smokeless tobacco: Never Vaping Use Vaping Use: Never used Substance Use Topics Alcohol use: No Drug use: No EXAM: BP 138/80 Pulse 74 Resp 16 Wt 71.5 kg (157 lb 11.2 oz) BMI 30.80 kg/m General Appearance: Well appearing, alert, in no acute distress, well-hydrated, well nourished.. Lungs: Lungs clear to auscultation. No wheezing, rhonchi, rales.. Heart: RRR without murmur, gallop, or rubs. No ectopy. Health Maintenance List DTAP,TDAP,TD(1 - Tdap) Never done SHINGRIX VACCINE(1 of 2) Never done COVID-19 VACCINE(3 - Booster for Pfizer series) due on 11/20/2020 DIABETIC FOOT EXAM due on 12/17/2020 DEPRESSION ASSESSMENT Never done INFLUENZA(1) due on 01/28/2022 DILATED RETINAL EXAM due on 04/28/2022 URINE ALBUMIN:CREATININE RATIO due on 05/08/2022 HBA1C due on 05/21/2022 LDL CHOLESTEROL due on 11/19/2022 BONE DENSITY Completed ADVANCE DIRECTIVE DISCUSSION Completed PNEUMOCOCCAL: 65+ Completed Data reviewed none ASSESSMENT/PLAN: 1. Essential hypertension, benign - ICD9: 401.1, ICD10: I10 (primary diagnosis) - good control - Continue current medication(s) - Recommended regular aerobic exercise. - Recommend home blood pressure monitoring, to bring results in on next visit - Goal of BP <140/90 2. Overactive bladder - ICD9: 596.51, ICD10: N32.81 Continue current medications. - TOLTERODINE 2 MG TABLET 3. Need for influenza vaccination - ICD9: V04.81, ICD10: Z23 - INFLUENZA SEASONAL QUADRIVALENT HIGH DOSE AGE 65+ 4. Mixed hyperlipidemia - ICD9: 272.2, ICD10: E78.2 5. Type 2 diabetes mellitus without complication, without long-term current use of insulin (HCC) - ICD9: 250.00, ICD10: E11.9 Labs pending to be done Continue lifestyle 6. Osteoarthritis of multiple joints, unspecified osteoarthritis type - ICD9: 715.89, ICD10: M15.9 7. Chronic kidney disease, stage 3a (HCC) - ICD9: 585.3, ICD10: N18.31 8. Type 2 diabetes mellitus with diabetic chronic kidney disease (HCC) - ICD9: 250.40, 585.9, ICD10: E11.22 9. URI, acute - ICD9: 465.9, ICD10: J06.9 - Discussed viral etiology and rationale for treatment. - Symptomatic treatment with prn analgesia - Supportive care with fluids and rest She will gets labs done; notify of results Follow up in 6 months I agree with the Chief Complaint, ROS, and Past Histories independently gathered by the clinical office support associate and the remaining scribed note accurately describes my personal service to the patient. Medical Decision Making: Problems: Low: Acute, uncomplicated illness or injury Moderate: 2+ stable chronic illnesses Risk: Moderate: Drug management Medical Decision Making Level: 4 - Moderate Irma Jefferson MD The documentation for this note was completed by Yasmin Jackson Ma acting as scribe for Irma Jefferson MD. May 25, 2022 11:27 AM. Yasmin Jackson Ma documented in this encounter [facility] 05-17-2022 Miscellaneous Notes Pt notified. Yasmin Jackson Ma OK for tessalon as ordered Irma Jefferson MD Janay Bowen is calling Irma Jefferson MD today with concern regarding Ongoing cough Patient has been identified by name and birthdate. Duration of symptoms: 1 week Person calling: self Call patient at: at home [phone] (home) Was an appointment scheduled: No Patient said she has had a cough for a week. Wants to know if rx can be prescribed. Closing statement: Symptom Call: Thank you for calling [facility], your call is very important. A nurse will call in approximately 2-4 hours during business hours. If this is an emergency, please contact 911. Esperanza Harper documented in this encounter [facility] 11-23-2021 History of Present illness Narrative Chief Complaint Patient presents with: F/U 6 Month HPI Janay Bowen is a 80 year old female who presents here today for 6 month follow up. Here today for a 6 month follow up and lab review. Will be traveling to [place] in November to see her sister, who she hasn't seen in quite some time. Plans on staying for two weeks. Will be driving. Now has two great grandchildren. GI/Uro - Denies any bowel, Gi, or urinary issues. Taking Detrol 2 mg daily as needed for urinary urgency. Notes this has increased in cost. OA: Dami thumbs and knees; pain controlled with Mobic 7.5 mg daily prn and Tylenol prn. Uses Blue Emu cream on the joints in her hands, states this is helpful. States carpal tunnel is coming back, but denies wanting to do anything at present time. Notes some locking. DM: Denies checking BS, no hypoglycemic episodes. Notes that b/l hallux toes "feel funny",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
[2024-12-19 20:37] VITALS: BP 186/86; PULSE 75; RESP 20; O2SAT 97
[2024-12-19 20:37] LABS: Hematocrit 44.6 % (37-47); Hemoglobin 15.1 g/dL (12.0-15.0); Immature Granulocytes Count 0.020 X10^3/uL (0.0-0.0); Mean Corp Hgb Conc 33.9 g/dL (32-36); Mean Corpuscular Volume 95.5 fL (81-99); Mean Platelet Vol. 10.4 fl (6.2-12.0); NRBC Flagged by Analyzer 0 % (0-5); Platelet Count 251 K/mm3 (150-450); RBC Distribution Width CV 12.1 % (11.6-14.6); RBC Distribution Width SD 42.4 fl (35.1-43.9); Red Blood Count 4.67 M/mm3 (4.2-5.4); White Blood Count 8.4 K/mm3 (4.4-11.0)
--- NOTE | 2024-12-19 20:38 | CT_ITS ---
PROCEDURE: BRAIN/HEAD WITHOUT CONTRAST 12/19/2024 REASON FOR EXAM: DIZZINESS, HYPERTENSION RULE OUT BLEED TECHNIQUE: BRAIN/HEAD WITHOUT CONTRAST Coronal and Sagittal reconstruction series were provided. One or more dose reduction techniques were used (e.g., Automated exposure control, adjustment of the mA and/or kV according to patient size, use of iterative reconstruction technique. RADIATION DOSE SUMMARY: CTDlvol: 45 mGy DLP: 729 mGycm COMPARISON: No FINDINGS: Diffuse atrophy. Arterial calcifications. No acute abnormal brain densities. No intracranial hemorrhage. No hydrocephalus or midline shift. No acute scalp or skull pathology. Bilateral lens extraction. Clear sinuses. CT/Brain/Head without Contrast IMPRESSION: No acute intracranial findings Reading Location: [place] [address]
--- NOTE | 2024-12-19 20:38 | RAD_ITS ---
PROCEDURE: CHEST 1 VIEW (PORTABLE) 12/19/2024 REASON FOR EXAM: HYPERTENSION, DIZZINESS TECHNIQUE: Frontal view of the chest. COMPARISON: 12/01/2022 FINDINGS: Mildly enlarged heart. Thoracic spine scoliosis and degeneration. Left rotator cuff calcific tendinitis. Lordotic positioning. Prominent fat pads. Well inflated lungs. RAD/Chest 1 View (Portable) IMPRESSION: No acute chest findings. Reading [facility]
[2024-12-19 21:29] LABS: AST(SGOT) 21 U/L (<=31); Alanine Aminotransfer ALT/SGPT 17 U/L (<=34); Albumin, Serum 4.6 g/dL (3.4-4.8); Alkaline Phosphatase 89 U/L (35-104); Anion Gap 15 (5-15); BUN 16 mg/dL (4-19); BUN/Creat Ratio 17.0 RATIO (10-20); Calcium,Total 9.8 mg/dL (7.6-11.0); Carbon Dioxide 24.2 mmol/L (21.0-32.0); Chloride 101 mmol/L (98-108); Estimated Creatinine Clearance 38.80 ml/min (50-250); Globulin 3.1 g/dL (2.2-4.2); Glucose 132 mg/dL (70-99); Potassium 4.1 mmol/L (3.3-5.1); Troponin T High Sensitivity 17 ng/L (<=14)
[2024-12-19 22:08] VITALS: BP 159/86; PULSE 90; RESP 18; TEMP 36.8; O2SAT 99
== END 2024-12-19 22:13 | disposition home or self-care (01) ==
PROVIDERS: Emergency Provider Emergency Medicine; Visit Provider Emergency Medicine
DX: I10 Essential (primary) hypertension (principal); I48.11 Longstanding persistent atrial fibrillation; E11.9 Type 2 diabetes mellitus without complications; E78.5 Hyperlipidemia, unspecified; Z79.01 Long term (current) use of anticoagulants; Z79.899 Other long term (current) drug therapy
CPT/HCPCS: 70450; 71045; 80053; 84484; 85025; 93005; 99283; A4216